=== PATIENT | male | born 1950 | race Caucasian/White ===

== ENCOUNTER 2023-01-04 08:33 | Inpatient (IN) | payer MEDICARE, OTHER, SELFPAY ==
[2023-01-04] VITALS (23 sets, daily range): BP systolic 89–157; BP diastolic 62–105; PULSE 69–128; RESP 14–26; TEMP 36.3–36.9; O2SAT 91–94; BMI 26.7
--- NOTE | 2023-01-04 | ECHO_ITS ---
Patient Info Name: Satnam Tovar Age: 72 years : 1950 Gender: Male Ht: 70 in Wt: 191 lbs BSA: 2.08 m2 HR: 112 bpm BP: 117 / 73 mmHg Heart Rhythm: Sinus Rhythm Technical Quality: Poor Exam Date: 01/04/2023 4:22 PM Exam Location: [facility] Pulmonary Patient Status: Inpatient Admit Date: 01/04/2023 Staff Ordering Physician: Mariana Orellana MD Potato Inspector: Lizz Rodríguez RDCS Attending Provider: Mariana Orellana MD Exam Type: CA echo dop color flow w con Study Info Indications - ELEVATED TROPONIN Complete two-dimensional, color flow and Doppler transthoracic echocardiogram is performed with contrast to opacify the left ventricle and to improve the deliniation of the left ventricle endocardial borders. Contrast/Agitated Saline Contrast/Ag. Saline: Definity Amount: 3.00 ml Administered By: Lizz Rodríguez RDCS Existing IV Access: Yes IV Access Condition: patent with no signs of infiltration Summary 1. Left ventricular chamber dimension is mildly enlarged. 2. Left ventricular systolic function is moderately reduced, estimated at 35-40%. 3. There is no increased left ventricular wall thickness. 4. Left ventricular septal wall motion is abnormal with septal motion related to bundle branch block. 5. The left ventricular diastolic function is indeterminate. 6. Left atrial chamber dimension is moderately enlarged. 7. The mitral valve has thickened leaflets. 8. There is mild mitral valve regurgitation. 9. There is mild tricuspid valve regurgitation. Left Ventricle Left ventricular chamber dimension is mildly enlarged. Left ventricular systolic function is moderately reduced, estimated at 35-40%. There is no increased left ventricular wall thickness. Left ventricular septal wall motion is abnormal with septal motion related to bundle branch block. The left ventricular diastolic function is indeterminate. Right Ventricle Right ventricular chamber dimension is normal. Right ventricular systolic function is normal. Left Atria Left atrial chamber dimension is moderately enlarged. Right Atria Right atrial chamber dimension is normal. Aortic Valve The aortic valve is not well visualized. There is no aortic valve stenosis. There is trace aortic valve regurgitation. Pulmonic Valve The pulmonic valve is not well visualized. Mitral Valve The mitral valve has thickened leaflets. There is no mitral valve stenosis. There is mild mitral valve regurgitation. Tricuspid Valve The tricuspid valve leaflets are normal. There is no significant tricuspid valve stenosis. There is mild tricuspid valve regurgitation. Pericardium/Pleural The pericardium appears normal. There is trivial pericardial effusion. Inferior Vena Cava Normal inferior vena cava with >50% collapse upon inspiration consistent with normal right atrial pressure, 5 mmHg. Aorta The aortic root size at the sinus of Valsalva is not well visualized. Left Ventricular Outflow Tract Name Value Normal LVOT Doppler LVOT Peak Gradient 2 mmHg LVOT Mean Gradient 1 mmHg LVOT VTI 7.76 cm LVOT VTI/AV VTI Ratio 0.37 Mitral Valve
--- NOTE | ~2023-01-04 | XR_ITS ---
EXAMINATION: XR abdomen/kub 1V INDICATION: Small bowel obstruction TECHNIQUE: Supine view of the abdomen is obtained COMPARISON: 01/08/2023 FINDINGS: There are persistently dilated loops of small bowel as well as a number of dilated loops ap pears has decreased. No free intraperitoneal gas is identified. 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 Phleboliths are noted in the pelvis. Right lower rib fractures are again noted. IMPRESSION: 1. Persistent but slight improvement in dilated small bowel, consistent with adynamic ileus versus pa rtial obstruction. Reviewed, dictated and finalized at location A. IMPRESSION: 1. Persistent but slight improvement in dilated small bowel, consistent with ad ynamic ileus versus partial obstruction.
--- NOTE | ~2023-01-04 | XR_ITS ---
EXAMINATION: XR sm bowel follow through DATE: 01/06/2023 13:38 INDICATION: Small bowel obstruction. TECHNIQUE: Oral contrast was administered, and a time course of radiographs of the abdomen was obtain ed. Fluoroscopy of the small bowel was not performed. Fluoroscopy exposure time was 0 minutes. The to lydia number of images was 8. COMPARISON: CT abdomen and pelvis 01/04/2023 FINDINGS: The nasogastric tube tip is in the stomach. There are multiple dilated loops of jejunum. The ileum is normal in caliber. Transit time from the stomach to proximal colon was approximately 3 hours. IMPRESSION: 1. Dilated jejunum without visible transition point, consistent with adynamic ileus versus partial sm all bowel obstruction. Reviewed, dictated and finalized at location A. IMPRESSION: 1. Dilated jejunum without visible transition point, consistent with adynamic i leus versus partial small bowel obstruction.
--- NOTE | ~2023-01-04 | US_ITS ---
EXAMINATION: US venous doppler [facility] DATE: 01/04/2023 18:48 INDICATION: Shortness of breath following long distance car ride TECHNIQUE: Grayscale ultrasound images without and with compression and Doppler ultrasound images of the bilateral lower extremity veins were obtained. COMPARISON: None. FINDINGS: The visualized portions of right common femoral vein, profunda (deep) femoral vein, femoral vein, pop liteal vein, posterior tibial veins, peroneal veins, gastrocnemius vein and greater saphenous vein ou tflow are patent. The visualized portions of left common femoral vein, profunda femoral vein, femoral vein, popliteal v ein, posterior tibial veins, peroneal veins, gastrocnemius vein and greater saphenous vein outflow ar e patent. IMPRESSION: 1. No deep venous thrombosis in either lower limb. Reviewed, dictated and finalized at location A.
--- NOTE | ~2023-01-04 | XR_ITS ---
EXAMINATION: XR abdomen NG/feed tube insert DATE: 01/04/2023 16:37 INDICATION: Nasogastric tube placement. TECHNIQUE: A supine view of the abdomen was obtained. COMPARISON: CT abdomen and pelvis 01/04/2023 FINDINGS: The nasogastric tube tip is in the stomach. The stomach is distended. There is mild elevati on of left hemidiaphragm. There are dilated loops of small bowel. The lower abdomen is not included. IMPRESSION: 1. Nasogastric tube tip in the stomach. 2. Dilated small bowel, consistent with small bowel obstruction. Reviewed, dictated and finalized at location A.
--- NOTE | ~2023-01-04 | CT_ITS ---
Non-contrast CT scan of the Abdomen and Pelvis Clinical indication: Vomiting, flank pain Technique: 2.5 mm axial scans were obtained through the abdomen and pelvis without intravenous or or al contrast. Dose reduction technique was used on this scan by utilizing automated exposure control a nd iterative reconstruction technique. The dose-length product (DLP) was 707.42 mGy-cm. Findings: Images through the lung bases reveal patchy groundglass opacification the visualized lung bases, with probable right middle lobe atelectatic change. There is no evidence of renal or ureteral calculi. The kidneys and the ureters are nondilated. The liver, spleen, pancreas, gallbladder, and adrenals appear normal. There are atherosclerotic calci fications of the aorta. Multiple dilated proximal small bowel is. Distal small bowel and large bowel are decompressed. Transi tion point not well delineated, probably in the mid abdomen. Images through the pelvis were performed. There is no evidence of ascites or lymphadenopathy. Urinary bladder unremarkable. Prostate gland is unremarkable. Fat-containing right inguinal hernia noted. Impression: Small bowel obstruction, as detailed above. Patchy groundglass opacities in the lung bases, suspicious for pneumonia or other inflammatory proces s. Correlate clinically. Fat-containing right inguinal hernia. Reviewed, dictated and finalized at location M. Impression: Small bowel obstruction, as detailed above. Patchy groundglass opacities in the lung bases, suspicious for pneumonia or oth er inflammatory process. Correlate clinically. Fat-containing right inguinal hernia.
--- NOTE | ~2023-01-04 | XR_ITS ---
EXAMINATION: XR ribs RT 2V DATE: 01/05/2023 13:43 INDICATION: Right rib fractures. TECHNIQUE: 2 views of the right ribs on 4 radiographs were obtained. COMPARISON: CT abdomen and pelvis 01/04/2023 FINDINGS: There is no right-sided pneumonia, pleural effusion, or pneumothorax. There are dilated loo ps of small bowel. The nasogastric tube tip is in the stomach. There is elevation of left hemidiaphra gm. There are fractures of right eighth-12th ribs. IMPRESSION: 1. Acute fractures of right eighth-12th ribs. 2. Dilated small bowel, consistent with adynamic ileus versus small bowel obstruction. Reviewed, dictated and finalized at location A. IMPRESSION: 1. Acute fractures of right eighth-12th ribs. 2. Dilated small bowel, consistent with adynamic ileus versus small bowel obstr uction.
--- NOTE | ~2023-01-04 | XR_ITS ---
XR abdomen obstructive series 01/05/2023 13:44 Indication: Small bowel obstruction Procedure: Supine and upright views of the abdomen Comparison: 01/04/2023 Findings: There are multiple dilated small bowel loops in the upper abdomen. The colon is relatively decompressed. NG tube partially visualized, likely in the stomach. No free air identified. Impression: 1: Dilated small bowel, likely small bowel obstruction. Reviewed, dictated and finalized at location B. Impression: 1: Dilated small bowel, likely small bowel obstruction.
--- NOTE | ~2023-01-04 | XR_ITS ---
EXAMINATION: XR abdomen NG/feed tube insert DATE: 01/04/2023 12:45 INDICATION: Nasogastric tube placement TECHNIQUE: An upright view of the abdomen was obtained on 2 radiographs. COMPARISON: CT abdomen and pelvis 01/04/2023 FINDINGS: The lower abdomen is excluded. There are dilated loops of small bowel. There is distention of the stomach. There is elevation of left hemidiaphragm. The nasogastric tube is coiled in the phary nx. IMPRESSION: 1. Nasogastric tube coiled in the pharynx. 2. Dilated small bowel, consistent with small bowel obstruction. Reviewed, dictated and finalized at location A.
--- NOTE | ~2023-01-04 | XR_ITS ---
EXAMINATION: XR abdomen obstructive series DATE: 01/08/2023 09:04 INDICATION: Partial small bowel obstruction TECHNIQUE: Decubitus and supine views of the abdomen were obtained. COMPARISON: 01/06/2023 FINDINGS: There are persistently dilated loops of small bowel. No free intraperitoneal gas is identif ied. Contrast from recent small bowel follow-through has entered the colon. There are displaced anter olateral fractures of the right ninth and 10th ribs. IMPRESSION: 1. Persistent dilated small bowel, consistent with adynamic ileus versus partial obstruction. 2. Displaced anterolateral fractures of the right ninth and 10th ribs. Reviewed, dictated and finalized at location A. IMPRESSION: 1. Persistent dilated small bowel, consistent with adynamic ileus versus partia l obstruction. 2. Displaced anterolateral fractures of the right ninth and 10th ribs.
--- NOTE | ~2023-01-04 | XR_ITS ---
EXAMINATION: XR chest 1V portable INDICATION: Shortness of breath TECHNIQUE: Portable AP chest at 0816 hours COMPARISON: 01/05/2023 FINDINGS: There is elevation of the left hemidiaphragm. There are minimal airspace opacities of the r ight lung base. A small right pleural effusion is suggested. There is no pneumothorax. Previously ila cribed right-sided rib fractures are not well demonstrated. IMPRESSION: 1. Small right pleural effusion and right basilar airspace opacity, likely atelectasis. Reviewed, dictated and finalized at location A. IMPRESSION: 1. Small right pleural effusion and right basilar airspace opacity, likely atel ectasis.
--- NOTE | ~2023-01-04 | XR_ITS ---
EXAMINATION: XR chest 1V portable DATE: 01/04/2023 09:22 INDICATION: Cough. Weakness. TECHNIQUE: A single frontal view of the chest was obtained. COMPARISON: None. FINDINGS: There is marked elevation of left hemidiaphragm. There is mild atelectasis at the lung base s. No pleural effusion or pneumothorax. The heart size is normal. There is gaseous distention of the stomach. IMPRESSION: 1. Marked elevation of left hemidiaphragm. 2. Mild atelectasis at the lung bases. Reviewed, dictated and finalized at location A.
--- NOTE | 2023-01-04 08:38 | ECG_ITS ---
Measurements Intervals [place] Rate: 123 P: 136 WV: 79 QRS: -24 QRSD: 166 T: 132 QT: 373 QTc: 536 Interpretive Statements ATRIAL FLUTTER/TACHYCARDIA WITH RAPID VENTRICULAR RSEPONSE FREQUENT VENTRICULAR COUPLETS LEFT BUNDLE BRANCH BLOCK BASELINE ARTIFACT- II ABNORMAL ECG NO PREVIOUS ECG AVAILABLE FOR COMPARISON Electronically Signed On 01-04-2023 10:30:07 CDT by Jamel Ragsdale D.O.
--- NOTE | 2023-01-04 08:59 | PC.NURSE ---
Pt To ED with c/o vomiting since last night and hiccups. Pt had a fall and fell on right side and reports he broke 7 ribs. Pt also has not had a BM in 4-5 days
[2023-01-04] MEDS: SODIUM CHLORIDE 0.9% IV 1,000 ML 999 ML IV CONT (09:06)
[2023-01-04] MEDS: ONDANSETRON INJ 4 MG/2 ML VIAL IV PUSH ×2 (09:10→14:43)
--- NOTE | 2023-01-04 09:18 | ED.GENADULT ---
HPI - General Adult General Chief complaint: Unspecified Stated complaint: weakness, n/v, dark urine Time Seen by Provider: 01/04/23 08:50 History of Present Illness HPI narrative: Pt presents today with numerous episodes of emesis since last night and hiccups. Pt fell 5 days ago and fractured 7 ribs on right side. Pt has been taking meds for pain and has been seen at [facility]. Pt has a history of LBBB and has not been here before. Pt denies CP. Related Data Home Medications Medication Instructions Recorded Confirmed alendronate 35 mg tablet 35 mg PO WEEKLY 01/04/23 01/04/23 amlodipine 5 mg tablet (Norvasc) 5 mg PO DAILY 01/04/23 01/04/23 aspirin 81 mg chewable tablet 81 mg PO DAILY 01/04/23 01/04/23 atorvastatin 40 mg tablet 40 mg PO DAILY 01/04/23 01/04/23 cetirizine 10 mg tablet (Zyrtec) 10 mg PO DAILY 01/04/23 01/04/23 fluticasone 250 mcg-salmeterol 50 1 inh inhalation DAILY 01/04/23 01/04/23 mcg/dose blistr powdr for inhalation (Advair Diskus) fosinopril 40 mg tablet 40 mg PO DAILY 01/04/23 01/04/23 hydrochlorothiazide 25 mg tablet 25 mg PO DAILY 01/04/23 01/04/23 potassium chloride 10 mEq 10 meq PO DAILY 01/04/23 01/04/23 tablet,extended release(part/cryst) Allergies Allergy/AdvReac Type Severity Reaction Status Date / Time Iodinated Contrast Media Allergy Anaphylactic Verified 01/04/23 08:59 Shock Review of Systems Review of Systems: All systems reviewed & are unremarkable except as noted in HPI and below PMFSH Past Medical History Medical History Dyslipidemia Hypertension Surgical History Surgical History History of appendectomy History of inguinal hernia repair Social History Social History Smoking status: Never smoker Alcohol intake: current Substance use: never Lack of Transportation: No Lack of Food: Never True Current Housing: I Have Housing Concerned About Future Housing: No Difficulty Paying Gas/Electric Bills: No Difficulty Paying for Meds: No Currently Unemployed: No Education: Bachelor's Degree Difficulty w/ Childcare or Family Care: No Spiritual care concerns: No Exam Const: General: cooperative, healthy appearing, comfortable and no acute distress Nutritional Appearance: average body habitus Orientation/consciousness: patient oriented x3 Limitations: no limitations HENMT: Head: normal to inspection Throat: posterior oropharynx normal Eyes: Conjunctivae: conjunctivae normal Neck: Neck: normal visual inspection Chest: Chest palpation & inspection: abnormal inspection of the chest and other (tender right side of chest and bruising no crepitance) Resp: Effort & Inspection: normal respiratory effort Auscultation: clear to auscultation bilaterally Cardio: Rate: tachycardic GI: Inspection: other (extensive echymosis right lateral abdomen and flank) GI Palp: Yes abdominal tenderness (mild generalized) Auscultation: normal bowel sounds Back/Spine/Pelvis: Back: ecchymosis Neuro: General: patient oriented x3 Motor exam (neuro): 5/5 motor strength present throughout Sensory Exam: normal sensation Extrem: General: normal to inspection and full ROM Psych: Appearance: grossly normal Mental Status: mental status grossly normal Speech and movement: Normal speech and movement present Affect: normal affect Attitude: cooperative Thought process: Normal thought process present Thought content: Yes Normal thought content present Course Vital Signs Vital signs: Vital Signs Temperature 97.3 F L 01/04/23 08:38 Pulse Rate 121 H 01/04/23 08:38 Respiratory Rate 18 01/04/23 08:38 Blood Pressure 157/105 H 01/04/23 08:38 Pulse Oximetry 93 01/04/23 08:38 Oxygen Delivery Room Air 01/04/23 08:38 Temperature 98.5 F 01/04/23 16:00 Pulse Rate 116 H 01/04/23
[2023-01-04 09:21] LABS: Basophils Absolute Auto 0.1 K/mm3 (0.0-0.1); Basophils Percent Auto 0.4 % (0.2-1.2); Eosinophils Absolute Auto 0.3 K/mm3 (0-0.3); Eosinophils Percent Auto 1.6 % (0-4.4); Hematocrit 46.3 % (42.0-52.0); Hemoglobin 16.1 g/dL (14.0-18.0); Immature Granulocyte Absolute 0.07 K/mm3 (0.00-0.031); Immature Granulocyte Percent A 0.4 % (0-0.5); Lymphocytes Absolute Auto 0.37 K/mm3 (0.9-3.2); Lymphocytes Percent Auto 2.2 % (18.3-44.2); Mean Corpuscular HGB Conc 34.8 g/dl (32-36); Mean Corpuscular Hemoglobin 33.3 pg (26-34); Mean Corpuscular Volume 95.7 fl (80-100); Mean Platelet Volume 10.5 fl (7.4-10.4); Monocytes Absolute Auto 1.1 K/mm3 (0.1-0.6); Monocytes Percent Auto 6.5 % (2.6-8.5); Neutrophils Percent Auto 88.9 % (45.5-73.1); Platelet Count Result 289 k/mm3 (150-375); Red Blood Count 4.84 M/mm3 (4.6-6.20); Red Cell Distribution Width 13.2 % (11.5-14.5); White Blood Count 16.9 K/mm3 (4.5-10.0)
[2023-01-04 09:29] LABS: Alanine Aminotransferase 71 U/L (6-50); Albumin Level 4.6 g/dL (3.5-5.1); Alkaline Phosphatase 53 U/L (38-126); Anion Gap 12 mmol/L (8-16); Aspartate Amino Transferase 47 U/L (17-59); Bilirubin,Total 2.4 mg/dL (0.2-1.3); Blood Urea Nitrogen 59 mg/dL (9-20); Calcium 11.5 mg/dL (8.4-10.2); Carbon Dioxide 32 mmol/L (22-30); Chloride 93 mmol/L (98-107); Estimated CRCL calculation 43 ml/min; Estimated Glomerular Filt Rate 50; Glucose 190 mg/dL (65-110); Potassium 3.6 mmol/L (3.4-5.0); Sodium 137 mmol/L (137-145)
[2023-01-04 09:32] LABS: Prothrombin Time 13.5 Seconds (11.1-14.7)
[2023-01-04 09:33] LABS: Partial Thromboplastin Time 22.7 SECONDS (22.3-36.8)
[2023-01-04 09:42] LABS: Troponin I 0.092 ng/mL (0.000-0.034)
[2023-01-04 10:46] LABS: Influenza A QL RT-PCR Negative (Negative); Influenza B QL RT-PCR Negative (Negative); RSV RNA, RT-PCR Negative (Negative); SARS-CoV-2 RNA PCR Negative (Negative)
[2023-01-04] MEDS: LORazepam INJ (*CRX) 2 MG/ML VIAL 0.5 MG IV PUSH (11:37)
[2023-01-04] MEDS: MORPHINE SULFATE (*CRX) 2 MG/ML INJ 1 MG IV PUSH (13:12)
[2023-01-04] MEDS: metroNIDAZOLE 500 MG/ISO 100ML 500 MG/100 ML BAG 100 MG IVPB ×2 (13:13→22:38)
--- NOTE | 2023-01-04 13:51 | PC.NURSE ---
3 ATTEMPTS BY [address] NGT. ALL ATTEMPTS UNSUCCESSFUL. PT RESTING AT THIS TIME, REQUESTING BREAK, ERP AWARE.
[2023-01-04] MEDS: CIPROFLOXACIN 400 MG/D5W 200ML 200 ML 200 MG IVPB ×2 (13:52→21:05)
--- NOTE | 2023-01-04 15:04 | PM.IMHP ---
H&P: HPI History of Present Illness Date/Time: 01/04/23 15:04 Chief Complaint: nausea/vomiting hiccups Narrative: 72 years old M with PMH of asthma, HTN presented with nausea, vomiting. He recently drove to [place] to see his son, came back had a fall 1 week ago, had right sided multiple rib fractures. Has been not able to take deep breath due to pain, started having chest congestion/tightness, and whezing. 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 Has not been able to keep anything down due to persistent nausea, vomiting. Not passing gas, last BM was 6-7 days ago. Had elevated troponin on admission which continues to trend up. CT abdomen shows SBO. Review of Systems Constitutional: Constitutional: Reports fatigue, Reports lethargy and Reports weakness Eyes: Eyes: Reports as per HPI ENT: Reports system reviewed and no additional complaints, except as documented Cardiovascular: Cardiovascular: Reports chest pain Respiratory: Respiratory: Reports chest congestion, Reports cough, Reports dyspnea and Reports wheezing Gastrointestinal: Gastrointestinal: Reports abdominal pain, Reports constipation, Reports nausea and Reports vomiting Musculoskeletal: Musculoskeletal: Reports no additional musculoskeletal complaints Neurologic: Reports system reviewed and no additional complaints, except as documented [facility] Social History Social History Smoking status: Never smoker Alcohol intake: current Substance use: never Lack of Transportation: No Lack of Food: Never True Current Housing: I Have Housing Concerned About Future Housing: No Difficulty Paying Gas/Electric Bills: No Difficulty Paying for Meds: No Currently Unemployed: No Education: Bachelor's Degree Difficulty w/ Childcare or Family Care: No Spiritual care concerns: No Meds Home Medications and Allergies Allergies Allergy/AdvReac Type Severity Reaction Status Date / Time Iodinated Contrast Media Allergy Anaphylactic Verified 01/04/23 08:59 Shock Vital Signs Vital Signs - 24 hr 01/04/23 08:38 01/04/23 08:41 01/04/23 08:45 Temperature 97.3 F L Pulse Rate 121 H Respiratory Rate 18 Blood Pressure 157/105 H Pulse Oximetry 93 94 94 Oxygen Delivery Room Air 01/04/23 08:46 01/04/23 09:23 01/04/23 09:36 Temperature Pulse Rate 117 H 128 H Respiratory Rate 20 16 Blood Pressure 122/84 Pulse Oximetry 93 94 92 Oxygen Delivery 01/04/23 09:48 01/04/23 10:00 01/04/23 10:24 Temperature Pulse Rate 110 H 109 H 111 H Respiratory Rate 26 H 18 20 Blood Pressure Pulse Oximetry 91 91 91 Oxygen Delivery 01/04/23 10:44 01/04/23 11:01 01/04/23 11:02 Temperature Pulse Rate 97 112 H Respiratory Rate 20 19 Blood Pressure 117/73 Pulse Oximetry 93 91 94 Oxygen Delivery 01/04/23 14:15 Temperature 97.3 F L Pulse Rate 69 Respiratory Rate 20 Blood Pressure 105/62 Pulse Oximetry 92 Oxygen Delivery Exam Const: General: in distress and uncomfortable HENMT: Face/Nose/Sinus: Normal nares present Mouth: Yes dry mucous membranes Eyes: Sclera: sclerae normal Neck: Neck: supple Resp: Effort & Inspection: normal respiratory effort Auscultation: diminished lung sounds Other: no wheezing heard Cardio: Rate: regular rate Rhythm: regular rhythm GI: Inspection: distended GI Palp: Yes Firmness to palpation present (GI) and Yes Tenderness to palpation present (GI) Other: absent bowel sounds Skin: General skin exam: normal color Neuro: Speech: normal speech Extrem: General: normal to inspection Psych: Mental Status: mental status grossly normal H&P: Results Labs Labs: Short CBC 01/04/23 Range/Units 09:06 WBC 16.9 H (4.5-10.0) K/mm3 Hgb 16.1 (14.0-18.0) g/dL Hct 46.3 (42.0-52.0) % Plt Count 289 (150-375) k/mm3 [facility] 01/04/23 09:06 Sodium 137 Pot
--- NOTE | 2023-01-04 15:08 | PC.NURSE ---
This patient, Satnam Tovar, was admitted to IMU Room 211-01. Patient/family oriented to hospital policies and general routines including ID bracelet, bed and alarms, visiting hours, pain management, procedures, bathroom and other care routines, personal items, smoking policy, room service/diet, and visiting hours. Information on how to activate the Rapid Response Team has been discussed. Patient/Family are encouraged to report perceived risks to care and to ask questions if they do not understand what they are told or what they should do.
--- NOTE | 2023-01-04 15:16 | ECG_ITS ---
Measurements Intervals [place] Rate: 113 P: RI: 0 QRS: 107 QRSD: 181 T: -67 QT: 409 QTc: 563 Interpretive Statements ATRIAL FLUTTER/TACHYCARDIA WITH RAPID VENTRICULAR RESPONS VENTRICULAR COUPLETS AND FREQUENT VENTRICULAR PREMATURE COMPLEXES LEFT BUNDLE BRANCH BLOCK BASELINE ARTIFACT- I, II, AVR, V1-V3 ABNORMAL ECG COMPARED TO ECG 01/04/2023 08:47:17 NO SIGNIFICANT CHANGES Electronically Signed On 01-04-2023 18:34:24 CDT by Jamel Ragsdale D.O.
[2023-01-04 15:18] LABS: Troponin I 0.139 ng/mL (0.000-0.034)
--- NOTE | 2023-01-04 15:53 | PM.CNGS ---
Assessment and Plan Assessment and plan (1) Small bowel obstruction: Code(s): K56.609 - Unspecified intestinal obstruction, unspecified as to partial versus complete obstruction Status: Acute Assessment and Plan: CT suggests a small bowel obstruction with possible transition point in the mid abdomen. His stomach appears fairly distended on imaging and they have been unsuccessful with NG placement in the ER. Nursing staff will attempt placement up on the floor as he continues to have nausea with vomiting in the ER and abdominal distention. If unsuccessful, then may need to consider fluoroscopy-guided NG placement. Would recommend to continue with conservative treatment for now with NG tube decompression, bowel rest, IV fluids, and analgesics as needed. Etiology not clear. Only previous abdominal surgery is an open appendectomy and laparoscopic inguinal hernia repair. His constipation and recent narcotic use could also be contributing to this issue. (2) Pneumonia: Code(s): J18.9 - Pneumonia, unspecified organism Status: Acute Assessment and Plan: CT suggests possible pneumonia. Patient with dyspnea, chest congestion, weak cough, and recent rib fractures. Currently on IV antibiotics, management per Hospitalist. (3) Elevated troponin: Code(s): R77.8 - Other specified abnormalities of plasma proteins Status: Acute Assessment and Plan: Elevated troponin 0.092. Denies any chest pain or pressure. Has shortness of breath with chest congestion. Echo ordered and Cardiology consulted. Venous dopplers also ordered. (4) ÓSCAR (acute kidney injury): Code(s): N17.9 - Acute kidney failure, unspecified Status: Acute (5) Status post fall: Code(s): Z91.81 - History of falling Status: Acute Assessment and Plan: Large area of bruising on the right lateral abdomen and flank, appears stable. Reported rib fractures on outpatient x-rays. Rib x-rays have been ordered. (6) Atrial arrhythmia: Code(s): I49.8 - Other specified cardiac arrhythmias Status: Acute Assessment and Plan: EKG x 2, showing atrial flutter and atrial fibrillation with RVR. Cardiology consulted and on telemetry in IMU. Plan I have discussed the patient's case and plan of care with Dr. Hoff. History of Present Illness Consult details Consult date: 01/04/23 Reason for consult: other (Small-bowel obstruction) Requesting physician: Eva Saini III, DO Narrative: This is a 72-year-old man with a history of hypertension, who presented to the emergency department with complaints of vomiting and hiccups. Patient reportedly had a ground level fall on his right side about 5 days ago and was seen in an urgent care. He had x-rays that reportedly showed multiple rib fractures on the right side. He reports having increasing shortness of breath and chest congestion over the past few days, but has been unable to have a good cough due to the rib fractures. 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 He reportedly took a dose of the steroids last night and developed nausea. He then had innumerous episodes of vomiting overnight. He reports his emesis was bilious appearing. He reports associated bloating and abdominal discomfort due to the bloating. He decided to come into the ER today for further evaluation. [place] [address], BUN 59, creatinine 1.4, glucose 190, and troponin 0.092. Total bilirubin noted to be 2.4. Chest x-ray showed marked elevation of left hemidiaphragm, mild atelectasis at the lung bases. CT scan of the abdomen and pelvis showed a small bowel obstruction with transition point not well delineated but probably in the mid abdomen, patchy ground-glass opacities in the lung bases suspicious for pneumonia, and fat containing right inguinal hernia. Attempt was made at NG tube placement in the ER. Subsequent KUB jessi
[2023-01-04] MEDS: SODIUM CHLORIDE 0.9% IV 1,000 ML 75 ML IV CONT (16:09)
[2023-01-04] MEDS: PERFLUTREN LIPID MICROSPHERES 1.5 ML VIAL DILUTED TO 10 ML TOTAL VOLUME IV PUSH (16:40)
--- NOTE | 2023-01-04 17:15 | IVDEFINITY ---
Prior to administration of IV Definity the patient was educated on the risks and benefits of the imaging enhancing agent including potential adverse side effects. The patient verbalized understanding. Allergies were verified. No exclusion criteria were identified and at least one of the following inclusion criteria were met: 1) physician request, 2) patient technically difficult to image (per the [employer]chocardi[employer] guidelines of two or more segments not discernable within the apical view), or 3) questionable left ventricular function. ?
--- NOTE | 2023-01-04 17:43 | PM.CNCAR ---
Assessment and Plan Assessment and plan (1) Elevated troponin: Code(s): R77.8 - Other specified abnormalities of plasma proteins Status: Acute Assessment and Plan: No chest pain. Has LBBB, which is chronic per the patient. Continue to trend troponins until peak. Echo ordered, will follow up on results. (2) Small bowel obstruction: Code(s): K56.609 - Unspecified intestinal obstruction, unspecified as to partial versus complete obstruction Status: Acute Assessment and Plan: General Surgery has been consulted. NG tube in place. (3) Atrial arrhythmia: Code(s): I49.8 - Other specified cardiac arrhythmias Status: Acute Assessment and Plan: Initial EKG read as possible atrial flutter or atrial tachycardia. Telemetry shows tachycardia initially, however, once NG tube was placed and patient started feeling better, his tachycardia improved. On telemetry, there is sinus rhythm with frequent ectopic beats with PACS/PVCs, appears to be some NSVT as well. Cannot take oral meds at this time, so will give dose of IV Metoprolol. Continue to monitor on tele. Will obtain repeat EKG in the morning. Keep electrolytes optimized. Will follow up on echo results. History of Present Illness History of Present Illness Consult date/time: 01/04/23 17:43 Requesting physician: Eva Saini III, DO Consult reason: Other (Elevated troponin) Reason For Visit: SBO Narrative: We are consulted for elevated troponin. This is a 72-year-old male with hypertension who presented to the ER with vomiting. Patient recently had a ground level fall couple days ago and had broken multiple ribs. Was having increased congestion and shortness of breath the past several days, which worsened after rib fracture. 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 However, patient has been having nausea with several episodes of vomiting. Also with abdominal distension, abdominal pain. Last bowel movement was 5 days ago. Patient found with small bowel obstruction on ER workup. Also noted to have troponin of 0.092 --> 0.139. No chest pain. Initial EKG shows probable sinus rhythm vs atrial tachycardia with LBBB. Patient states he was told he had a LBBB several months ago when undergoing MRI scan for his prostate. Does not see a oracle database consultant. No prior cardiac history. Review of Systems Review of Systems: All systems reviewed & are unremarkable except as noted in HPI and below (HPI) PMFSH Past Medical History Medical History Dyslipidemia Hypertension Surgical History Surgical History History of appendectomy History of inguinal hernia repair Social History Social History Smoking status: Never smoker Alcohol intake: current Substance use: never Lack of Transportation: No Lack of Food: Never True Current Housing: I Have Housing Concerned About Future Housing: No Difficulty Paying Gas/Electric Bills: No Difficulty Paying for Meds: No Currently Unemployed: No Education: Bachelor's Degree Difficulty w/ Childcare or Family Care: No Spiritual care concerns: No Meds Home Medications and Allergies Home Medications Medication Instructions Recorded Confirmed Type alendronate 35 mg tablet 35 mg PO WEEKLY 01/04/23 01/04/23 History amlodipine 5 mg tablet (Norvasc) 5 mg PO DAILY 01/04/23 01/04/23 History aspirin 81 mg chewable tablet 81 mg PO DAILY 01/04/23 01/04/23 History atorvastatin 40 mg tablet 40 mg PO DAILY 01/04/23 01/04/23 History cetirizine 10 mg tablet (Zyrtec) 10 mg PO DAILY 01/04/23 01/04/23 History fluticasone 250 mcg-salmeterol 50 1 inh inhalation DAILY 01/04/23 01/04/23 History mcg/dose blistr powdr for inhalation (Advair Diskus) fosinopril 40 mg tablet 40 mg PO DAILY 01/04/23 01/04/23 History hydrochlorothiazide 25 mg
[2023-01-04 18:10] LABS: INR 1.1; Prothrombin Time 15.1 Seconds (11.1-14.7)
[2023-01-04] MEDS: METOPROLOL TARTRATE INJ 5 MG/5 ML VIAL IV PUSH (18:21)
[2023-01-04] MEDS: HEPARIN SOD/D5W 100 UNITS/ML 25,000 UNITS/250 ML BAG 10 UNITS IV CONT (18:23)
[2023-01-04 18:29] LABS: Troponin I 0.139 ng/mL (0.000-0.034)
[2023-01-04] MEDS: ALBUTEROL SULFATE NEB 2.5 MG/3 ML INH INHALATION (20:48)
[2023-01-04 22:03] LABS: Troponin I 0.139 ng/mL (0.000-0.034)
[2023-01-05] VITALS (24 sets, daily range): BP systolic 93–123; BP diastolic 42–66; PULSE 69–106; RESP 14–18; TEMP 36.6–37.3; O2SAT 91–96
[2023-01-05 00:43] LABS: Partial Thromboplastin Time 67.7 SECONDS (22.3-36.8)
[2023-01-05] MEDS: HEPARIN SODIUM 5,000 UNITS/ML VIAL 3500 UNITS IV PUSH ×2 (01:10→14:24)
[2023-01-05] MEDS: ALBUTEROL SULFATE NEB 2.5 MG/3 ML INH INHALATION ×3 (02:52→21:24)
[2023-01-05 04:57] LABS: Basophils Percent Auto 0.1 % (0.2-1.2); Hematocrit 39.2 % (42.0-52.0); Hemoglobin 13.2 g/dL (14.0-18.0); Immature Granulocyte Absolute 0.03 K/mm3 (0.00-0.031); Immature Granulocyte Percent A 0.3 % (0-0.5); Lymphocytes Absolute Auto 0.62 K/mm3 (0.9-3.2); Lymphocytes Percent Auto 5.5 % (18.3-44.2); Mean Corpuscular HGB Conc 33.7 g/dl (32-36); Mean Corpuscular Hemoglobin 32.8 pg (26-34); Mean Corpuscular Volume 97.5 fl (80-100); Mean Platelet Volume 10.3 fl (7.4-10.4); Monocytes Percent Auto 9.1 % (2.6-8.5); Neutrophils Absolute Auto 9.7 K/mm3 (1.3-6.7); Platelet Count Result 203 k/mm3 (150-375); Red Blood Count 4.02 M/mm3 (4.6-6.20); Red Cell Distribution Width 13.2 % (11.5-14.5); White Blood Count 11.4 K/mm3 (4.5-10.0)
[2023-01-05 05:06] LABS: Anion Gap 6 mmol/L (8-16); Blood Urea Nitrogen 75 mg/dL (9-20); Calcium 9.5 mg/dL (8.4-10.2); Carbon Dioxide 39 mmol/L (22-30); Chloride 95 mmol/L (98-107); Estimated CRCL calculation 40 ml/min; Estimated Glomerular Filt Rate 46; Glucose 117 mg/dL (65-110); Magnesium 2.2 mg/dL (1.6-2.3); Potassium 3.3 mmol/L (3.4-5.0); Sodium 140 mmol/L (137-145)
[2023-01-05] MEDS: metroNIDAZOLE 500 MG/ISO 100ML 500 MG/100 ML BAG 100 MG IVPB ×3 (05:46→22:52)
[2023-01-05] MEDS: SODIUM CHLORIDE 0.9% IV 1,000 ML 75 ML IV CONT ×2 (05:46→20:04)
--- NOTE | 2023-01-05 07:00 | ECG_ITS ---
Measurements Intervals [address] Rate: 93 P: 42 IN: 152 QRS: -28 QRSD: 205 T: 148 QT: 452 QTc: 565 Interpretive Statements SINUS RHYTHM FREQUENT VENTRICULAR PREMATURE COMPLEXES LEFT BUNDLE BRANCH BLOCK ABNORMAL ECG COMPARED TO ECG 01/04/2023 15:35:31 SINUS RHYTHM NOW PRESENT Electronically Signed On 01-05-2023 7:50:50 CDT by Jamel Ragsdale D.O.
[2023-01-05 07:45] LABS: Partial Thromboplastin Time 71.6 SECONDS (22.3-36.8)
--- NOTE | 2023-01-05 09:01 | PM.IMPN ---
Progress Note: A&P Assessment and Plan (1) Small bowel obstruction: Code(s): K56.609 - Unspecified intestinal obstruction, unspecified as to partial versus complete obstruction Status: Acute Assessment and Plan: Consult general surgery, continue NG tube, NPO Cipro/Flagyl started 01/04 Zofran as needed, hold home medications (2) ÓSCAR (acute kidney injury): Code(s): N17.9 - Acute kidney failure, unspecified Status: Acute Assessment and Plan: Likely prerenal due to dehydration from severe nausea and vomiting Continue IV fluids, monitor creatinine 01/05: cr slightly worsened with IVF, cont to monitor on IVF, suspect needs more time to affect creat, check FeNa (3) Elevated troponin: Code(s): R77.8 - Other specified abnormalities of plasma proteins Status: Acute Assessment and Plan: Continue to trend, appreciate cardiology consult, follow-up echo Continue heparin drip Venous dopplers negative for DVT Chronic LBBB (4) Leucocytosis: Code(s): D72.829 - Elevated white blood cell count, unspecified Status: Acute Assessment and Plan: Unsure of etiology, could be reactive vs steroid use vs infectious etiology, down to 11 01/05 from 16 at admission 01/04 Was on prednisone as outpatient for possible pneumonia after recent rib fractures and cough developed (5) Dehydration: Code(s): E86.0 - Dehydration Status: Acute (6) Right rib fracture: Code(s): S22.31XA - Fracture of one rib, right side, initial encounter for closed fracture Status: Acute Assessment and Plan: Monitor, Lidoderm patch, Tylenol as needed S/p mechanical fall Rib series xray pending (7) Atrial fibrillation with RVR: Code(s): I48.91 - Unspecified atrial fibrillation Status: Acute Assessment and Plan: Consult cardiology, monitor telemetry Maintain potassium > 4 and mag > 2 Plan DVT prophylaxis with heparin drip GI prophylaxis not indicated Code status full code Subjective Date/time seen: 01/05/23 09:01 Interval history: 72-year-old male with history of asthma, hypertension presenting with nausea and vomiting, found to have SBO on admission. No overnight events noted. No chest pain or shortness of breath. No nausea, vomiting or diarrhea. No fevers or chills. Review of Systems Review of Systems: 12 point review of systems was assessed and was negative except as noted in the HPI Exam Narrative: General: No acute distress, alert and oriented per baseline, ngt in place to suction, bile noted in canister, 2L overnight HEENT: Atraumatic, normocephalic, mucous membranes moist CV: Regular rate and rhythm, S1, S2 Lungs: Clear to auscultation bilaterally, no rales or crackles noted, no wheezes, good air entry Abdomen: Soft, nontender, nondistended, hypoactive BS Extremities: Normal to inspection Skin: No rashes noted, no lesions or wounds seen Psych: Euthymic, normal affect Objective Data Vital Signs Vital Signs: Vital Signs - 24 hr 01/04/23 09:23 01/04/23 09:36 01/04/23 09:48 Temperature Pulse Rate 117 H 128 H 110 H Respiratory Rate 20 16 26 H Blood Pressure Pulse Oximetry 94 92 91 Oxygen Delivery Oxygen Flow Rate 01/04/23 10:00 01/04/23 10:24 01/04/23 10:44 Temperature Pulse Rate 109 H 111 H Respiratory Rate 18 20 Blood Pressure Pulse Oximetry 91 91 93 Oxygen Delivery Oxygen Flow Rate 01/04/23 11:01 01/04/23 11:02 01/04/23 14:15 Temperature 97.3 F L Pulse Rate 97 112 H 69 Respiratory Rate 20 19 20 Blood Pressure 117/73 105/62 Pulse Oximetry 91 94 92 Oxygen Delivery Oxygen Flow Rate 01/04/23 16:00 01/04/23 17:38 01/04/23 16:00 Temperature 98.5 F Pulse Rate 116 H 105 H Respiratory Rate 16 Blood Pressure 115/71 Pulse Oximetry 92 93 Oxygen Delivery Room Air Oxygen Flow Rate 01/04/23 18:21 01/04
[2023-01-05] MEDS: CIPROFLOXACIN 400 MG/D5W 200ML 200 ML 200 MG IVPB ×2 (09:03→20:05)
--- NOTE | 2023-01-05 10:03 | PM.PNCARD ---
Progress Note: A&P Assessment and Plan (1) Elevated troponin: Code(s): R77.8 - Other specified abnormalities of plasma proteins Status: Acute Assessment and Plan: No chest pain. Has LBBB, which is chronic per the patient. Continue to trend troponins until [facility]. Echo pending (2) Small bowel obstruction: Code(s): K56.609 - Unspecified intestinal obstruction, unspecified as to partial versus complete obstruction Status: Acute Assessment and Plan: General Surgery has been consulted. NG tube in place. (3) Atrial arrhythmia: Code(s): I49.8 - Other specified cardiac arrhythmias Status: Acute Assessment and Plan: Initial EKG read as possible atrial flutter or atrial tachycardia. Telemetry shows tachycardia initially, however, once NG tube was placed and patient started feeling better, his tachycardia improved. On telemetry, there is sinus rhythm with frequent ectopic beats with PACS/PVCs, appears to be some NSVT as well. Cannot take oral meds at this time. Metoprolol 5 mg IV Q 8 hours will be scheduled. Replace electrolytes as needed. Subjective Date/time seen: 01/05/23 10:03 Interval history: 72-year-old male with history of asthma, hypertension presenting with nausea and vomiting, found to have SBO on admission. Date of service 01/05/2023: Feels a little bit better. No chest pain or shortness of breath. Review of Systems Review of Systems: All systems reviewed & are unremarkable except as noted in HPI and below Cardiovascular: Cardiovascular: Denies chest pain Respiratory: Respiratory: Denies dyspnea Exam Const: General: no acute distress HENMT: Mouth: Yes moist mucous membranes Other: NG tube in place Eyes: General: appearance normal, both eyes and all related structures Sclera: sclerae normal Neck: Neck: supple Resp: Effort & Inspection: normal respiratory effort Auscultation: clear to auscultation bilaterally Cardio: Rate: tachycardic Rhythm: abnormal rhythm with ectopic beats GI: Inspection: distended Skin: General skin exam: normal color Neuro: Speech: normal speech Extrem: General: normal to inspection Psych: Mental Status: mental status grossly normal Affect: normal affect Objective Data Vital Signs Vital Signs: Vital Signs - 24 hr 01/04/23 10:24 01/04/23 10:44 01/04/23 11:01 Temperature Pulse Rate 111 H 97 Respiratory Rate 20 20 Blood Pressure 117/73 Pulse Oximetry 91 93 91 Oxygen Delivery Oxygen Flow Rate 01/04/23 11:02 01/04/23 14:15 01/04/23 16:00 Temperature 36.3 C L 36.9 C Pulse Rate 112 H 69 116 H Respiratory Rate 19 20 16 Blood Pressure 105/62 115/71 Pulse Oximetry 94 92 92 Oxygen Delivery Oxygen Flow Rate 01/04/23 17:38 01/04/23 16:00 01/04/23 18:21 Temperature Pulse Rate 105 H 117 H Respiratory Rate Blood Pressure Pulse Oximetry 93 Oxygen Delivery Room Air Oxygen Flow Rate 01/04/23 18:00 01/04/23 20:55 01/04/23 20:00 Temperature 36.4 C L Pulse Rate 89 83 Respiratory Rate 16 Blood Pressure 89/67 L Pulse Oximetry 94 94 Oxygen Delivery Nasal Cannula Oxygen Flow Rate 2 01/04/23 20:00 01/04/23 20:00 01/04/23 22:00 Temperature Pulse Rate 86 86 88 Respiratory Rate 16 Blood Pressure Pulse Oximetry 94 Oxygen Delivery Nasal Cannula Oxygen Flow Rate 2 01/04/23 23:45 01/05/23 00:00 01/05/23 00:00 Temperature 36.4 C L Pulse Rate 91 84 84 Respiratory Rate 14 14 Blood Pressure 147/95 H Pulse Oximetry 93 93 Oxygen Delivery Nasal Cannula Oxygen Flow Rate 2 01/05/23 02:00 01/04/23 20:48 01/04/23 20:58 Temperature Pulse Rate 86 92 96 Respiratory Rate 18 18 Blood Pressure Pulse Oximetry Oxygen Delivery Oxygen Flow Rate 01/05/23 02:53 01/05/23 04:00 01/05/23 03:05 Temperature 36.9 C Pulse Rate 88 105 H 91 Respiratory Rate 18 14 18 Blood Pressure 113/66 Pulse Oximet
[2023-01-05 10:17] LABS: Anion Gap 3 mmol/L (8-16); Blood Urea Nitrogen 64 mg/dL (9-20); Calcium 9.1 mg/dL (8.4-10.2); Carbon Dioxide 39 mmol/L (22-30); Chloride 96 mmol/L (98-107); Estimated CRCL calculation 59 ml/min; Estimated Glomerular Filt Rate > 60; Glucose 120 mg/dL (65-110); Potassium 3.1 mmol/L (3.4-5.0); Sodium 138 mmol/L (137-145)
--- NOTE | 2023-01-05 10:22 | PM.PNGS ---
Progress Note: A&P Assessment and Plan (1) Small bowel obstruction: Code(s): K56.609 - Unspecified intestinal obstruction, unspecified as to partial versus complete obstruction Status: Acute Assessment and Plan: Patient feeling much better and abdominal exam much improved after NG tube was placed. He had over 3 liters out since yesterday afternoon. Waiting for abdominal x-rays this morning. Continue NG tube, NPO, IV fluids, and analgesics as needed. May consider a small bowel follow through in the next 1-2 days depending on how he progresses. (2) Pneumonia: Code(s): J18.9 - Pneumonia, unspecified organism Status: Acute Assessment and Plan: Possible pneumonia on CT (3) Elevated troponin: Code(s): R77.8 - Other specified abnormalities of plasma proteins Status: Acute Assessment and Plan: Troponins being followed to [facility], Cardiology following, currently on a Heparin drip. Not complaining of any chest pain or discomfort this morning. (4) ÓSCAR (acute kidney injury): Code(s): N17.9 - Acute kidney failure, unspecified Status: Acute Assessment and Plan: Improved with IV fluid hydration, continue IV fluids, monitor labs. (5) Status post fall: Code(s): Z91.81 - History of falling Status: Acute (6) Atrial arrhythmia: Code(s): I49.8 - Other specified cardiac arrhythmias Status: Acute Assessment and Plan: Cardiology following. Currently on IV metoprolol. Tachycardia improved after NG tube decompression, repeat EKG this morning showing sinus rhythm with ectopy. Plan I have discussed the patient's case and plan of care with Dr. Hoff. Subjective Subjective Date/Time Seen: 01/05/23 09:22 Patient reports: no new complaints, feels better, pain is less and no bowel movement Interval history: Patient feeling much better today. His bloating has improved and his abdominal discomfort resolved after having the NG placed. He had 3,200 out of his NG since being placed yesterday afternoon. He still reports only a little flatus but no BM. Now on a heparin drip for his elevated troponins. He still complains of some chest congestion and now a productive cough, but no shortness of breath or chest pain. Review of Systems Cardiovascular: Cardiovascular: Reports no additional cardiovascular complaints and Denies chest pain Respiratory: Respiratory: Reports no additional respiratory complaints, Reports chest congestion and Denies dyspnea Gastrointestinal: Gastrointestinal: Reports as per HPI and Reports no additional gastrointestinal complaints Exam Const: General: comfortable and awake Orientation/consciousness: patient oriented x3 GI: Inspection: other (abdominal distention much improved) GI Palp: Yes Soft to palpation, Yes Tenderness to palpation present (GI) (mild diffuse tenderness, improved), No Guarding due to palpation present (GI) and No Rebound tenderness present Auscultation: absent bowel sounds Objective Data Vital Signs Vital Signs: Vital Signs - 24 hr 01/04/23 10:24 01/04/23 10:44 01/04/23 11:01 Temperature Pulse Rate 111 H 97 Respiratory Rate 20 20 Blood Pressure 117/73 Pulse Oximetry 91 93 91 Oxygen Delivery Oxygen Flow Rate 01/04/23 11:02 01/04/23 14:15 01/04/23 16:00 Temperature 97.3 F L 98.5 F Pulse Rate 112 H 69 116 H Respiratory Rate 19 20 16 Blood Pressure 105/62 115/71 Pulse Oximetry 94 92 92 Oxygen Delivery Oxygen Flow Rate 01/04/23 17:38 01/04/23 16:00 01/04/23 18:21 Temperature Pulse Rate 105 H 117 H Respiratory Rate Blood Pressure Pulse Oximetry 93 Oxygen Delivery Room Air Oxygen Flow Rate 01/04/23 18:00 01/04/23 20:55 01/04/23 20:00 Temperature 97.5 F L Pulse Rate 89 83 Respiratory Rate 16 Blood Pressure 89/67 L Pulse Oximetry 94 94 Oxygen Delivery Nasal Cannula Oxygen Flow Rate 2 01/04/23 20:00 01/04/23 20:00 01/04/23
[2023-01-05 10:33] LABS: Troponin I 0.072 ng/mL (0.000-0.034)
[2023-01-05] MEDS: POTASSIUM CHLORIDE INJ 40 MEQ in SODIUM CHLORIDE 0.9% IV 500 ML 130 MEQ IVPB (11:41)
[2023-01-05] MEDS: PANTOPRAZOLE SODIUM IV 40 MG VIAL IV PUSH (11:41)
[2023-01-05 12:26] LABS: Creatinine Urine 100.8 mg/dL
[2023-01-05 12:30] LABS: Sodium Urine Random 40 meq/L
[2023-01-05 13:03] LABS: Partial Thromboplastin Time 67.6 SECONDS (22.3-36.8)
[2023-01-05] MEDS: METOPROLOL TARTRATE INJ 5 MG/5 ML VIAL IV PUSH ×2 (14:23→22:55)
[2023-01-05] MEDS: HEPARIN SOD/D5W 100 UNITS/ML 25,000 UNITS/250 ML BAG 14 UNITS IV CONT (14:25)
[2023-01-05] MEDS: ONDANSETRON INJ 4 MG/2 ML VIAL IV PUSH (17:49)
[2023-01-05 19:20] LABS: Alanine Aminotransferase 40 U/L (6-50); Albumin Level 3.2 g/dL (3.5-5.1); Alkaline Phosphatase 43 U/L (38-126); Anion Gap 4 mmol/L (8-16); Aspartate Amino Transferase 32 U/L (17-59); Bilirubin,Total 1.3 mg/dL (0.2-1.3); Blood Urea Nitrogen 50 mg/dL (9-20); Calcium 8.8 mg/dL (8.4-10.2); Carbon Dioxide 36 mmol/L (22-30); Chloride 102 mmol/L (98-107); Estimated CRCL calculation 65 ml/min; Estimated Glomerular Filt Rate > 60; Glucose 98 mg/dL (65-110); Potassium 3.8 mmol/L (3.4-5.0); Sodium 142 mmol/L (137-145)
[2023-01-05 20:16] LABS: Partial Thromboplastin Time 152.7 SECONDS (22.3-36.8)
[2023-01-05] MEDS: FLUTICASONE/SALMETEROL 115-21 MCG INHALER 1 PUFF 2 PUFF INHALATION (21:25)
[2023-01-06] VITALS (23 sets, daily range): BP systolic 96–112; BP diastolic 44–66; PULSE 61–82; RESP 16–20; TEMP 36.2–37.2; O2SAT 94–99
[2023-01-06] MEDS: ALBUTEROL SULFATE NEB 2.5 MG/3 ML INH INHALATION ×4 (02:54→20:44)
[2023-01-06 03:25] LABS: Basophils Percent Auto 0.2 % (0.2-1.2); Eosinophils Percent Auto 0.4 % (0-4.4); Hematocrit 39.6 % (42.0-52.0); Hemoglobin 12.7 g/dL (14.0-18.0); Immature Granulocyte Absolute 0.03 K/mm3 (0.00-0.031); Immature Granulocyte Percent A 0.3 % (0-0.5); Lymphocytes Absolute Auto 0.77 K/mm3 (0.9-3.2); Lymphocytes Percent Auto 8.6 % (18.3-44.2); Mean Corpuscular HGB Conc 32.1 g/dl (32-36); Mean Corpuscular Hemoglobin 32.2 pg (26-34); Mean Corpuscular Volume 100.5 fl (80-100); Mean Platelet Volume 10.2 fl (7.4-10.4); Monocytes Absolute Auto 0.9 K/mm3 (0.1-0.6); Monocytes Percent Auto 10.2 % (2.6-8.5); Neutrophils Absolute Auto 7.2 K/mm3 (1.3-6.7); Neutrophils Percent Auto 80.3 % (45.5-73.1); Platelet Count Result 173 k/mm3 (150-375); Red Blood Count 3.94 M/mm3 (4.6-6.20); Red Cell Distribution Width 13.2 % (11.5-14.5); White Blood Count 8.9 K/mm3 (4.5-10.0)
[2023-01-06 03:38] LABS: Partial Thromboplastin Time 98.1 SECONDS (22.3-36.8)
[2023-01-06 03:48] LABS: Alanine Aminotransferase 39 U/L (6-50); Albumin Level 3.3 g/dL (3.5-5.1); Alkaline Phosphatase 41 U/L (38-126); Anion Gap 1 mmol/L (8-16); Aspartate Amino Transferase 26 U/L (17-59); Bilirubin,Total 1.1 mg/dL (0.2-1.3); Blood Urea Nitrogen 39 mg/dL (9-20); Calcium 8.3 mg/dL (8.4-10.2); Carbon Dioxide 39 mmol/L (22-30); Chloride 102 mmol/L (98-107); Estimated CRCL calculation 54 ml/min; Estimated Glomerular Filt Rate > 60; Glucose 97 mg/dL (65-110); Sodium 142 mmol/L (137-145)
[2023-01-06] MEDS: metroNIDAZOLE 500 MG/ISO 100ML 500 MG/100 ML BAG 100 MG IVPB ×3 (05:17→21:41)
[2023-01-06] MEDS: METOPROLOL TARTRATE INJ 5 MG/5 ML VIAL IV PUSH ×3 (05:17→21:42)
[2023-01-06] MEDS: FLUTICASONE/SALMETEROL 115-21 MCG INHALER 1 PUFF 2 PUFF INHALATION ×2 (08:09→20:52)
[2023-01-06 09:07] LABS: Partial Thromboplastin Time 73.2 SECONDS (22.3-36.8)
--- NOTE | 2023-01-06 09:26 | PM.IMPN ---
Progress Note: A&P Assessment and Plan (1) Small bowel obstruction: Code(s): K56.609 - Unspecified intestinal obstruction, unspecified as to partial versus complete obstruction Status: Acute Assessment and Plan: Appreciate general surgery consultation, continue NG tube, NPO Improving, AXR still shows SBO, defer further management to surgery, may need SBFT Cipro/Flagyl started 01/04 Zofran as needed, hold home medications (2) ÓSCAR (acute kidney injury): Code(s): N17.9 - Acute kidney failure, unspecified Status: Acute Assessment and Plan: Likely prerenal due to dehydration from severe nausea and vomiting Continue IV fluids, monitor creatinine 01/05: cr slightly worsened with IVF, cont to monitor on IVF, suspect needs more time to affect creat, check FeNa 01/06: FeNa indicative of prerenal ÓSCAR, cont IVF, increase rate to 125 from 75 as cr bumped a bit again from 0.9 to 1.1 (3) Elevated troponin: Code(s): R77.8 - Other specified abnormalities of plasma proteins Status: Acute Assessment and Plan: Continue to trend, appreciate cardiology consult, follow-up echo Continue heparin drip Venous dopplers negative for DVT Chronic LBBB Troponin peaked at 0.139, trending down now to 0.072 (4) Leucocytosis: Code(s): D72.829 - Elevated white blood cell count, unspecified Status: Acute Assessment and Plan: Unsure of etiology, could be reactive vs steroid use vs infectious etiology, down to 11 01/05 from 16 at admission 01/04 Was on prednisone as outpatient for possible pneumonia after recent rib fractures and cough developed 01/06: Resolved, cont cipro/flagyl (5) Dehydration: Code(s): E86.0 - Dehydration Status: Acute Assessment and Plan: as above (6) Right rib fracture: Code(s): S22.31XA - Fracture of one rib, right side, initial encounter for closed fracture Status: Acute Assessment and Plan: Monitor, Lidoderm patch, Tylenol as needed S/p mechanical fall 01/05: Rib series xray showed acute fractures of ribs 8-12 on right, cont pain control (7) Atrial fibrillation with RVR: Code(s): I48.91 - Unspecified atrial fibrillation Status: Acute Assessment and Plan: Consult cardiology, monitor telemetry, cont heparin drip, cont scheduled metoprolol IV Maintain potassium > 4 and mag > 2 Plan DVT prophylaxis with heparin drip GI prophylaxis not indicated Code status full code Subjective Date/time seen: 01/06/23 09:26 Interval history: 72-year-old male with history of asthma, hypertension presenting with nausea and vomiting, found to have SBO on admission. No overnight events noted. No chest pain or shortness of breath. No nausea, vomiting or diarrhea. No fevers or chills. +flatus. +productive cough. Review of Systems Review of Systems: 12 point review of systems was assessed and was negative except as noted in the HPI Exam Narrative: General: No acute distress, alert and oriented per baseline, ngt in place to suction, bile noted in canister, 2L overnight HEENT: Atraumatic, normocephalic, mucous membranes moist CV: Regular rate and rhythm, S1, S2 Lungs: Clear to auscultation bilaterally, no rales or crackles noted, no wheezes, good air entry Abdomen: Soft, nontender, nondistended, hypoactive BS Extremities: Normal to inspection Skin: No rashes noted, no lesions or wounds seen Objective Data Vital Signs Vital Signs: Vital Signs - 24 hr 01/05/23 12:00 01/05/23 10:00 01/05/23 12:00 Temperature 98 F Pulse Rate 85 103 H Respiratory Rate 18 Blood Pressure 103/42 L Pulse Oximetry 92 92 Oxygen Delivery Nasal Cannula Oxygen Flow Rate 2 01/05/23 12:00 01/05/23 14:00 01/05/23 14:23 Temperature Pulse Rate 106 H 98 95 Respiratory Rate Blood Pressure Pulse Oximetry Oxygen Delivery Oxygen Flow Rate 0
[2023-01-06] MEDS: PANTOPRAZOLE SODIUM IV 40 MG VIAL IV PUSH (09:37)
[2023-01-06] MEDS: CIPROFLOXACIN 400 MG/D5W 200ML 200 ML 200 MG IVPB ×2 (09:37→20:40)
--- NOTE | 2023-01-06 09:42 | PM.PNGS ---
Progress Note: A&P Assessment and Plan (1) Small bowel obstruction: Code(s): K56.609 - Unspecified intestinal obstruction, unspecified as to partial versus complete obstruction Status: Acute Assessment and Plan: NG output less and abdominal exam improved. Still no bowel function. Will order a small bowel follow through today to further evaluate. (2) Pneumonia: Code(s): J18.9 - Pneumonia, unspecified organism Status: Acute (3) Elevated troponin: Code(s): R77.8 - Other specified abnormalities of plasma proteins Status: Acute Assessment and Plan: Troponins peaked at 0.139, Cardiology following, still on a Heparin drip. Not complaining of any chest pain or discomfort. (4) ÓSCAR (acute kidney injury): Code(s): N17.9 - Acute kidney failure, unspecified Status: Acute (5) Status post fall: Code(s): Z91.81 - History of falling Status: Acute Plan I have discussed the patient's case and plan of care with Dr. Hoff. Subjective Subjective Date/Time Seen: 01/06/23 09:42 Patient reports: no new complaints, flatus and no bowel movement Interval history: Patient feeling about the same today. NG output yesterday during day shift was 450 cc and no documented output overnight. Nursing staff not sure of NG output overnight. Patient still having upper abdominal discomfort, bloating improved. Still only little flatus, no BM. Review of Systems Review of Systems: ROS unchanged Exam Const: General: no acute distress Orientation/consciousness: patient oriented x3 GI: Inspection: non-distended and other (Ecchymosis in RLQ extending laterally to right flank s/p fall is unchanged) GI Palp: Yes Soft to palpation, Yes Tenderness to palpation present (GI) (mild diffuse upper abdominal tenderness), No Guarding due to palpation present (GI) and No Rebound tenderness present Auscultation: normal bowel sounds Objective Data Vital Signs Vital Signs: Vital Signs - 24 hr 01/05/23 12:00 01/05/23 10:00 01/05/23 12:00 Temperature 98 F Pulse Rate 85 103 H Respiratory Rate 18 Blood Pressure 103/42 L Pulse Oximetry 92 92 Oxygen Delivery Nasal Cannula Oxygen Flow Rate 2 01/05/23 12:00 01/05/23 14:00 01/05/23 14:23 Temperature Pulse Rate 106 H 98 95 Respiratory Rate Blood Pressure Pulse Oximetry Oxygen Delivery Oxygen Flow Rate 01/05/23 15:56 01/05/23 16:00 01/05/23 16:00 Temperature 98.6 F Pulse Rate 76 80 Respiratory Rate 16 Blood Pressure 99/66 L Pulse Oximetry 92 96 Oxygen Delivery Nasal Cannula Oxygen Flow Rate 2 01/05/23 18:00 01/05/23 20:00 01/05/23 20:00 Temperature 99.1 F Pulse Rate 85 82 78 Respiratory Rate 16 Blood Pressure 93/54 L Pulse Oximetry 96 Oxygen Delivery Oxygen Flow Rate 01/05/23 20:00 01/05/23 21:27 01/05/23 21:28 Temperature Pulse Rate 78 81 Respiratory Rate 16 18 Blood Pressure Pulse Oximetry 96 95 Oxygen Delivery Nasal Cannula Nasal Cannula Oxygen Flow Rate 2 2 01/05/23 21:39 01/05/23 22:55 01/05/23 22:00 Temperature Pulse Rate 82 81 72 Respiratory Rate 18 Blood Pressure Pulse Oximetry Oxygen Delivery Oxygen Flow Rate 01/06/23 00:00 01/06/23 00:00 01/06/23 00:00 Temperature 97.1 F L Pulse Rate 67 70 70 Respiratory Rate 18 18 Blood Pressure 100/44 L Pulse Oximetry 97 97 Oxygen Delivery Nasal Cannula Oxygen Flow Rate 2 01/06/23 02:00 01/06/23 02:54 01/06/23 03:01 Temperature Pulse Rate 68 78 80 Respiratory Rate 18 18 Blood Pressure Pulse Oximetry Oxygen Delivery Oxygen Flow Rate 01/06/23 04:00 01/06/23 05:17 01/06/23 04:00 Temperature 97.9 F Pulse Rate 68 82 73 Respiratory Rate 18 Blood Pressure 96/54 L Pulse Oximetry 97 Oxygen Delivery Oxygen Flow Rate 01/06/23 04:00 01/06/23 05:51 01/06/23 07:55 Temperature 98.6 F Pulse Rate 73 82 64
[2023-01-06] MEDS: LIDOCAINE 5% PATCH 1 PATCH TRANSDERM (09:49)
[2023-01-06] MEDS: ONDANSETRON INJ 4 MG/2 ML VIAL IV PUSH ×2 (10:14→14:05)
--- NOTE | 2023-01-06 10:16 | PM.PNCARD ---
Progress Note: A&P Assessment and Plan (1) Elevated troponin: Code(s): R77.8 - Other specified abnormalities of plasma proteins Status: Acute Assessment and Plan: No chest pain. Has LBBB, which is chronic per the patient. Continue to trend troponins until peak. (2) Small bowel obstruction: Code(s): K56.609 - Unspecified intestinal obstruction, unspecified as to partial versus complete obstruction Status: Acute Assessment and Plan: General Surgery has been consulted. NG tube in place. (3) Atrial arrhythmia: Code(s): I49.8 - Other specified cardiac arrhythmias Status: Acute Assessment and Plan: Initial EKG read as possible atrial flutter or atrial tachycardia. Telemetry shows tachycardia initially, however, once NG tube was placed and patient started feeling better, his tachycardia improved. On telemetry, there is sinus rhythm with frequent ectopic beats with PACS/PVCs, appears to be some NSVT as well. Cannot take oral meds at this time. Metoprolol 5 mg IV Q 8 hours will be scheduled. Replace electrolytes as needed. (4) Cardiomyopathy: Code(s): I42.9 - Cardiomyopathy, unspecified Status: Acute Assessment and Plan: doeshave a moderate cardiomyopathy. Continue metoprolol IV for now and eventually will need an ischemic workup once bowel obstruction is resolved. Discontinue amlodipine. When able, will transition to Entresto Subjective Date/time seen: 01/06/23 10:16 Interval history: 72-year-old male with history of asthma, hypertension presenting with nausea and vomiting, found to have SBO on admission. Date of service 01/05/2023: Feels a little bit better. No chest pain or shortness of breath. Date of service 01/06/2023: Rhythm seems to be more stable with IV metoprolol scheduled. He is still unable to take p.o.. No chest pain But does have some shortness of breath Review of Systems Review of Systems: All systems reviewed & are unremarkable except as noted in HPI and below Cardiovascular: Cardiovascular: Denies chest pain and Reports dyspnea Respiratory: Respiratory: Denies dyspnea Exam Narrative: awake alert Const: General: no acute distress HENMT: Mouth: Yes moist mucous membranes Other: NG tube in place Eyes: General: appearance normal, both eyes and all related structures Sclera: sclerae normal Neck: Neck: supple Resp: Effort & Inspection: normal respiratory effort Auscultation: clear to auscultation bilaterally Cardio: Rate: regular rate Rhythm: abnormal rhythm with ectopic beats GI: Inspection: distended Skin: General skin exam: normal color Neuro: Speech: normal speech Extrem: General: normal to inspection Psych: Mental Status: mental status grossly normal Affect: normal affect Objective Data Vital Signs Vital Signs: Vital Signs - 24 hr 01/05/23 12:00 01/05/23 12:00 01/05/23 12:00 Temperature 36.6 C Pulse Rate 85 106 H Respiratory Rate 18 Blood Pressure 103/42 L Pulse Oximetry 92 92 Oxygen Delivery Nasal Cannula Oxygen Flow Rate 2 01/05/23 14:00 01/05/23 14:23 01/05/23 15:56 Temperature Pulse Rate 98 95 Respiratory Rate Blood Pressure Pulse Oximetry 92 Oxygen Delivery Nasal Cannula Oxygen Flow Rate 2 01/05/23 16:00 01/05/23 16:00 01/05/23 18:00 Temperature 37.0 C Pulse Rate 76 80 85 Respiratory Rate 16 Blood Pressure 99/66 L Pulse Oximetry 96 Oxygen Delivery Oxygen Flow Rate 01/05/23 20:00 01/05/23 20:00 01/05/23 20:00 Temperature 37.3 C Pulse Rate 82 78 78 Respiratory Rate 16 16 Blood Pressure 93/54 L Pulse Oximetry 96 96 Oxygen Delivery Nasal Cannula Oxygen Flow Rate 2 01/05/23 21:27 01/05/23 21:28 01/05/23 21:39 Temperature Pulse Rate 81 82 Respiratory Rate 18 18 Blood Pressure Pulse Oximetry 95 Oxygen Delivery Nasal Cannula Oxygen Flow Rate 2 01/05/23 22:55
[2023-01-06] MEDS: HEPARIN SOD/D5W 100 UNITS/ML 25,000 UNITS/250 ML BAG 11 UNITS IV CONT (16:14)
[2023-01-06] MEDS: SODIUM CHLORIDE 0.9% IV 1,000 ML 125 ML IV CONT (21:43)
[2023-01-07] VITALS (22 sets, daily range): BP systolic 99–115; BP diastolic 44–69; PULSE 62–87; RESP 12–20; TEMP 36.1–37; O2SAT 92–99
[2023-01-07] MEDS: ALBUTEROL SULFATE NEB 2.5 MG/3 ML INH INHALATION ×4 (02:51→21:03)
[2023-01-07] MEDS: metroNIDAZOLE 500 MG/ISO 100ML 500 MG/100 ML BAG 100 MG IVPB ×3 (05:34→21:49)
[2023-01-07] MEDS: METOPROLOL TARTRATE INJ 5 MG/5 ML VIAL IV PUSH ×3 (05:35→21:49)
[2023-01-07 05:59] LABS: Basophils Percent Auto 0.1 % (0.2-1.2); Eosinophils Absolute Auto 0.1 K/mm3 (0-0.3); Hematocrit 39.1 % (42.0-52.0); Hemoglobin 12.7 g/dL (14.0-18.0); Immature Granulocyte Absolute 0.04 K/mm3 (0.00-0.031); Immature Granulocyte Percent A 0.5 % (0-0.5); Lymphocytes Percent Auto 7.5 % (18.3-44.2); Mean Corpuscular HGB Conc 32.5 g/dl (32-36); Mean Corpuscular Hemoglobin 32.7 pg (26-34); Mean Corpuscular Volume 100.8 fl (80-100); Monocytes Absolute Auto 0.7 K/mm3 (0.1-0.6); Monocytes Percent Auto 9.3 % (2.6-8.5); Neutrophils Absolute Auto 6.5 K/mm3 (1.3-6.7); Neutrophils Percent Auto 81.6 % (45.5-73.1); Platelet Count Result 185 k/mm3 (150-375); Red Blood Count 3.88 M/mm3 (4.6-6.20); Red Cell Distribution Width 13.2 % (11.5-14.5)
[2023-01-07 06:11] LABS: Alanine Aminotransferase 30 U/L (6-50); Albumin Level 3.3 g/dL (3.5-5.1); Alkaline Phosphatase 42 U/L (38-126); Anion Gap 3 mmol/L (8-16); Aspartate Amino Transferase 20 U/L (17-59); Bilirubin,Total 0.9 mg/dL (0.2-1.3); Blood Urea Nitrogen 29 mg/dL (9-20); Calcium 7.9 mg/dL (8.4-10.2); Carbon Dioxide 32 mmol/L (22-30); Chloride 108 mmol/L (98-107); Estimated CRCL calculation 73 ml/min; Estimated Glomerular Filt Rate > 60; Glucose 94 mg/dL (65-110); Partial Thromboplastin Time 74.3 SECONDS (22.3-36.8); Potassium 3.6 mmol/L (3.4-5.0); Sodium 143 mmol/L (137-145)
[2023-01-07] MEDS: FLUTICASONE/SALMETEROL 115-21 MCG INHALER 1 PUFF 2 PUFF INHALATION ×2 (07:05→21:05)
[2023-01-07] MEDS: SODIUM CHLORIDE 0.9% IV 1,000 ML 125 ML IV CONT (08:20)
[2023-01-07] MEDS: CIPROFLOXACIN 400 MG/D5W 200ML 200 ML 200 MG IVPB ×2 (08:23→20:04)
[2023-01-07] MEDS: PANTOPRAZOLE SODIUM IV 40 MG VIAL IV PUSH (08:25)
[2023-01-07] MEDS: LIDOCAINE 5% PATCH 1 PATCH TRANSDERM (08:25)
--- NOTE | 2023-01-07 09:52 | PM.IMPN ---
Progress Note: A&P Assessment and Plan (1) Small bowel obstruction: Code(s): K56.609 - Unspecified intestinal obstruction, unspecified as to partial versus complete obstruction Status: Acute Assessment and Plan: Appreciate general surgery consultation, continue NG tube, NPO Improving, AXR + SBFT still show SBO 01/06, defer further management to surgery Cipro/Flagyl started 01/04 Zofran as needed, hold home medications (2) ÓSCAR (acute kidney injury): Code(s): N17.9 - Acute kidney failure, unspecified Status: Acute Assessment and Plan: Likely prerenal due to dehydration from severe nausea and vomiting Continue IV fluids, monitor creatinine 01/05: cr slightly worsened with IVF, cont to monitor on IVF, suspect needs more time to affect creat, check FeNa 01/06: FeNa indicative of prerenal ÓSCAR, cont IVF, increase rate to 125 from 75 as cr bumped a bit again from 0.9 to 1.1 01/07: cr resolved with IVF, d/c IVF as diet advanced to clears today, monitor (3) Elevated troponin: Code(s): R77.8 - Other specified abnormalities of plasma proteins Status: Acute Assessment and Plan: Continue to trend, appreciate cardiology consult, follow-up echo Continue heparin drip Venous dopplers negative for DVT Chronic LBBB Troponin peaked at 0.139, trending down now to 0.072 Ischemic workup needed after bowel obstruction resolves (4) Leucocytosis: Code(s): D72.829 - Elevated white blood cell count, unspecified Status: Acute Assessment and Plan: Unsure of etiology, could be reactive vs steroid use vs infectious etiology, down to 11 01/05 from 16 at admission 01/04 Was on prednisone as outpatient for possible pneumonia after recent rib fractures and cough developed 01/06: Resolved, cont cipro/flagyl (5) Dehydration: Code(s): E86.0 - Dehydration Status: Acute Assessment and Plan: resolved (6) Right rib fracture: Code(s): S22.31XA - Fracture of one rib, right side, initial encounter for closed fracture Status: Acute Assessment and Plan: Monitor, Lidoderm patch, Tylenol as needed S/p mechanical fall 01/05: Rib series xray showed acute fractures of ribs 8-12 on right, cont pain control (7) Atrial fibrillation with RVR: Code(s): I48.91 - Unspecified atrial fibrillation Status: Acute Assessment and Plan: Cardiology consult appreciated, monitor telemetry, cont heparin drip, cont scheduled metoprolol IV Maintain potassium > 4 and mag > 2 Plan DVT prophylaxis with heparin drip GI prophylaxis not indicated Code status full code Subjective Date/time seen: 01/07/23 09:52 Interval history: 72-year-old male with history of asthma, hypertension presenting with nausea and vomiting, found to have SBO on admission. No overnight events noted. No chest pain or shortness of breath. No nausea, vomiting or diarrhea. No fevers or chills. +flatus. +BM. Review of Systems Review of Systems: 12 point review of systems was assessed and was negative except as noted in the HPI Exam Narrative: General: No acute distress, alert and oriented per baseline, ngt in place to suction, bile noted in canister, 2L overnight HEENT: Atraumatic, normocephalic, mucous membranes moist CV: Regular rate and rhythm, S1, S2 Lungs: Clear to auscultation bilaterally, no rales or crackles noted, no wheezes, good air entry Abdomen: Soft, nontender, nondistended, hypoactive BS Extremities: Normal to inspection Skin: No rashes noted, no lesions or wounds seen Objective Data Vital Signs Vital Signs: Vital Signs - 24 hr 01/06/23 12:00 01/06/23 13:58 01/06/23 12:00 Temperature 98.8 F Pulse Rate 79 72 Respiratory Rate 16 Blood Pressure 112/56 L Pulse Oximetry 95 96 Oxygen Delivery Nasal Cannula Oxygen Flow Rate 2 01/06/23 15:08 01/06/23 16:00 01/06/23 16:00 Temperature 98
--- NOTE | 2023-01-07 10:38 | PM.PNCARD ---
Progress Note: A&P Assessment and Plan (1) Cardiomyopathy: Code(s): I42.9 - Cardiomyopathy, unspecified Status: Acute Plan 72-year-old man with left bundle branch block and asymptomatic left ventricular systolic dysfunction. Admitted to the hospital with small-bowel obstruction which obviously is improving with NG decompression. Will recommend starting guideline directed medical therapy for LV dysfunction once he is taking medication and no longer is NPO. If he remains hemodynamically stable without cardiovascular issues will anticipate proceeding with left heart catheterization as an outpatient. There is no urgency to perform this during this hospitalization as he recovers from a bowel obstruction. Juaquin Mauricio MD [facility] WITH [facility] Subjective Date/time seen: Date of service: 01/07/23 10:38 Interval history: Follow-up visit in this 72-year-old man with: Chronic left bundle branch block and a newly identified left ventricular systolic dysfunction. Patient admitted to the hospital for small bowel obstruction. No cardiovascular symptoms or complaints. Patient has been on NG suction/decompression and has improved in fact had bowel movement this morning and is feeling much better surgical team has not yet seen him on rounds. Exam Const: General: comfortable and no acute distress Other: Pleasant well-developed well-nourished white male no distress NG suction in place HENMT: Mouth: Yes moist mucous membranes Eyes: Sclera: sclerae normal Neck: Neck: supple and no JVD Resp: Effort & Inspection: normal respiratory effort Auscultation: clear to auscultation bilaterally Cardio: Rate: regular rate Rhythm: regular rhythm Other: PMI difficult to palpate, no murmur GI: GI Palp: Yes Soft to palpation Skin: General skin exam: normal color Neuro: Other: Alert and oriented x3 Extrem: Other: Good perfusion, no edema Objective Data Vital Signs Vital Signs: Vital Signs - 24 hr 01/06/23 12:00 01/06/23 13:58 01/06/23 12:00 Temperature 37.1 C Pulse Rate 79 72 Respiratory Rate 16 Blood Pressure 112/56 L Pulse Oximetry 95 96 Oxygen Delivery Nasal Cannula Oxygen Flow Rate 2 01/06/23 15:08 01/06/23 16:00 01/06/23 16:00 Temperature 37.2 C Pulse Rate 74 74 Respiratory Rate 18 18 Blood Pressure 112/60 Pulse Oximetry 95 96 Oxygen Delivery Nasal Cannula Oxygen Flow Rate 2 01/06/23 12:00 01/06/23 14:00 01/06/23 16:00 Temperature Pulse Rate 73 64 73 Respiratory Rate Blood Pressure Pulse Oximetry Oxygen Delivery Oxygen Flow Rate 01/06/23 18:00 01/06/23 20:40 01/06/23 20:40 Temperature Pulse Rate 73 77 77 Respiratory Rate 18 Blood Pressure Pulse Oximetry 94 Oxygen Delivery Nasal Cannula Oxygen Flow Rate 2 01/06/23 20:48 01/06/23 20:00 01/06/23 21:42 Temperature 36.4 C L Pulse Rate 73 68 82 Respiratory Rate 18 18 Blood Pressure 101/50 L Pulse Oximetry 98 Oxygen Delivery Oxygen Flow Rate 01/06/23 20:00 01/06/23 20:00 01/06/23 22:00 Temperature Pulse Rate 70 70 65 Respiratory Rate 18 Blood Pressure Pulse Oximetry 94 Oxygen Delivery Nasal Cannula Oxygen Flow Rate 2 01/07/23 00:00 01/07/23 00:00 01/07/23 00:00 Temperature 37.0 C Pulse Rate 64 65 65 Respiratory Rate 20 20 Blood Pressure 106/55 L Pulse Oximetry 98 98 Oxygen Delivery Nasal Cannula Oxygen Flow Rate 2 01/07/23 02:00 01/07/23 02:50 01/07/23 02:58 Temperature Pulse Rate 69 69 71 Respiratory Rate 18 18 Blood Pressure Pulse Oximetry Oxygen Delivery Oxygen Flow Rate 01/07/23 04:00 01/07/23 04:00 01/07/23 04:00 Temperature 36.6 C Pulse Rate 79 79 76 Respiratory Rate 18 20 Blood Pressure 115/69 Pulse Oximetry 98 98 Oxygen Delivery Nasal Cannula Oxygen Flow Rate 2 01/07/23 05:35 01/07/23 06:00 01/07/23 08:00 Temperature 36.3 C L Pulse Rate 74 62
--- NOTE | 2023-01-07 13:15 | PM.PNGS ---
Progress Note: A&P Assessment and Plan (1) Small bowel obstruction: Code(s): K56.609 - Unspecified intestinal obstruction, unspecified as to partial versus complete obstruction Status: Acute Assessment and Plan: NG has been clamped all morning. Will remove NG today and continue clear liquids. Advance diet tomorrow if continuing to improve. Will repeat abdominal x-ray in AM. (2) Pneumonia: Code(s): J18.9 - Pneumonia, unspecified organism Status: Acute (3) Elevated troponin: Code(s): R77.8 - Other specified abnormalities of plasma proteins Status: Acute Assessment and Plan: Troponins peaked at 0.139, Cardiology following, still on a Heparin drip. Not complaining of any chest pain or discomfort. OK to transition to oral anticoagulation (4) ÓSCAR (acute kidney injury): Code(s): N17.9 - Acute kidney failure, unspecified Status: Acute (5) Status post fall: Code(s): Z91.81 - History of falling Status: Acute Subjective Subjective Date/Time Seen: 01/07/23 13:15 Interval history: Bowels moving. NG has been clamped. No nausea, bloating, or vomiting. No abdominal pain. Exam Const: General: no acute distress Orientation/consciousness: patient oriented x3 GI: Inspection: non-distended and other (Ecchymosis in RLQ extending laterally to right flank s/p fall is unchanged) GI Palp: Yes Soft to palpation, No Tenderness to palpation present (GI), No Guarding due to palpation present (GI) and No Rebound tenderness present Auscultation: normal bowel sounds Objective Data Vital Signs Vital Signs: Vital Signs - 24 hr 01/06/23 13:58 01/06/23 15:08 01/06/23 16:00 Temperature 37.2 C Pulse Rate 79 74 74 Respiratory Rate 18 18 Blood Pressure 112/60 Pulse Oximetry 95 Oxygen Delivery Oxygen Flow Rate 01/06/23 16:00 01/06/23 14:00 01/06/23 16:00 Temperature Pulse Rate 64 73 Respiratory Rate Blood Pressure Pulse Oximetry 96 Oxygen Delivery Nasal Cannula Oxygen Flow Rate 2 01/06/23 18:00 01/06/23 20:40 01/06/23 20:40 Temperature Pulse Rate 73 77 77 Respiratory Rate 18 Blood Pressure Pulse Oximetry 94 Oxygen Delivery Nasal Cannula Oxygen Flow Rate 2 01/06/23 20:48 01/06/23 20:00 01/06/23 21:42 Temperature 36.4 C L Pulse Rate 73 68 82 Respiratory Rate 18 18 Blood Pressure 101/50 L Pulse Oximetry 98 Oxygen Delivery Oxygen Flow Rate 01/06/23 20:00 01/06/23 20:00 01/06/23 22:00 Temperature Pulse Rate 70 70 65 Respiratory Rate 18 Blood Pressure Pulse Oximetry 94 Oxygen Delivery Nasal Cannula Oxygen Flow Rate 2 01/07/23 00:00 01/07/23 00:00 01/07/23 00:00 Temperature 37.0 C Pulse Rate 64 65 65 Respiratory Rate 20 20 Blood Pressure 106/55 L Pulse Oximetry 98 98 Oxygen Delivery Nasal Cannula Oxygen Flow Rate 2 01/07/23 02:00 01/07/23 02:50 01/07/23 02:58 Temperature Pulse Rate 69 69 71 Respiratory Rate 18 18 Blood Pressure Pulse Oximetry Oxygen Delivery Oxygen Flow Rate 01/07/23 04:00 01/07/23 04:00 01/07/23 04:00 Temperature 36.6 C Pulse Rate 79 79 76 Respiratory Rate 18 20 Blood Pressure 115/69 Pulse Oximetry 98 98 Oxygen Delivery Nasal Cannula Oxygen Flow Rate 2 01/07/23 05:35 01/07/23 06:00 01/07/23 08:00 Temperature 36.3 C L Pulse Rate 74 62 76 Respiratory Rate 12 Blood Pressure 111/64 Pulse Oximetry 97 Oxygen Delivery Oxygen Flow Rate 01/07/23 07:05 01/07/23 07:05 01/07/23 07:15 Temperature Pulse Rate 62 62 65 Respiratory Rate 18 18 18 Blood Pressure Pulse Oximetry 97 Oxygen Delivery Nasal Cannula Oxygen Flow Rate 3.5 01/07/23 08:00 01/07/23 10:00 01/07/23 08:00 Temperature Pulse Rate 87 73 Respiratory Rate Blood Pressure Pulse Oximetry 93 Oxygen Delivery Room Air Oxygen Flow Rate 01/07/23 12:00 Temperature 36.4 C
[2023-01-07] MEDS: ONDANSETRON INJ 4 MG/2 ML VIAL IV PUSH (15:24)
[2023-01-08] VITALS (17 sets, daily range): BP systolic 115–123; BP diastolic 57–76; PULSE 67–96; RESP 16–20; TEMP 36.7; O2SAT 91–99
[2023-01-08] MEDS: MORPHINE SULFATE (*CRX) 2 MG/ML INJ 1 MG IV PUSH ×2 (01:49→10:00)
[2023-01-08] MEDS: ONDANSETRON INJ 4 MG/2 ML VIAL IV PUSH (01:52)
[2023-01-08] MEDS: ALBUTEROL SULFATE NEB 2.5 MG/3 ML INH INHALATION ×4 (02:06→19:59)
[2023-01-08 04:25] LABS: Basophils Percent Auto 0.1 % (0.2-1.2); Eosinophils Absolute Auto 0.1 K/mm3 (0-0.3); Eosinophils Percent Auto 1.8 % (0-4.4); Hematocrit 39.8 % (42.0-52.0); Hemoglobin 13.1 g/dL (14.0-18.0); Immature Granulocyte Absolute 0.04 K/mm3 (0.00-0.031); Immature Granulocyte Percent A 0.6 % (0-0.5); Lymphocytes Absolute Auto 0.88 K/mm3 (0.9-3.2); Lymphocytes Percent Auto 12.2 % (18.3-44.2); Mean Corpuscular HGB Conc 32.9 g/dl (32-36); Mean Corpuscular Hemoglobin 32.8 pg (26-34); Mean Corpuscular Volume 99.7 fl (80-100); Mean Platelet Volume 10.2 fl (7.4-10.4); Monocytes Absolute Auto 0.7 K/mm3 (0.1-0.6); Monocytes Percent Auto 9.8 % (2.6-8.5); Neutrophils Absolute Auto 5.5 K/mm3 (1.3-6.7); Neutrophils Percent Auto 75.5 % (45.5-73.1); Platelet Count Result 192 k/mm3 (150-375); Red Blood Count 3.99 M/mm3 (4.6-6.20); Red Cell Distribution Width 12.9 % (11.5-14.5); White Blood Count 7.2 K/mm3 (4.5-10.0)
[2023-01-08 04:39] LABS: Potassium 3.6 mmol/L (3.4-5.0)
[2023-01-08 04:41] LABS: Alanine Aminotransferase 30 U/L (6-50); Albumin Level 3.4 g/dL (3.5-5.1); Alkaline Phosphatase 47 U/L (38-126); Anion Gap 3 mmol/L (8-16); Aspartate Amino Transferase 25 U/L (17-59); Blood Urea Nitrogen 21 mg/dL (9-20); Calcium 7.7 mg/dL (8.4-10.2); Carbon Dioxide 31 mmol/L (22-30); Chloride 104 mmol/L (98-107); Estimated CRCL calculation 73 ml/min; Estimated Glomerular Filt Rate > 60; Glucose 95 mg/dL (65-110); Sodium 138 mmol/L (137-145)
[2023-01-08] MEDS: metroNIDAZOLE 500 MG/ISO 100ML 500 MG/100 ML BAG 100 MG IVPB (05:38)
[2023-01-08] MEDS: METOPROLOL TARTRATE INJ 5 MG/5 ML VIAL IV PUSH ×3 (05:38→21:16)
[2023-01-08] MEDS: ALENDRONATE SODIUM 35 MG TABLET PO (05:38)
[2023-01-08] MEDS: FLUTICASONE/SALMETEROL 115-21 MCG INHALER 1 PUFF 2 PUFF INHALATION ×2 (08:31→20:00)
--- NOTE | 2023-01-08 08:46 | PM.IMPN ---
Progress Note: A&P Assessment and Plan (1) Small bowel obstruction: Code(s): K56.609 - Unspecified intestinal obstruction, unspecified as to partial versus complete obstruction Status: Acute Assessment and Plan: Appreciate general surgery consultation, improving, diet advancing Cipro/Flagyl started 01/04, end date 01/10 to complete 7 day course, will transition to oral 01/08 Zofran as needed, restart home meds (2) ÓSCAR (acute kidney injury): Code(s): N17.9 - Acute kidney failure, unspecified Status: Acute Assessment and Plan: Likely prerenal due to dehydration from severe nausea and vomiting Continue IV fluids, monitor creatinine 01/05: cr slightly worsened with IVF, cont to monitor on IVF, suspect needs more time to affect creat, check FeNa 01/06: FeNa indicative of prerenal ÓSCAR, cont IVF, increase rate to 125 from 75 as cr bumped a bit again from 0.9 to 1.1 01/07: cr resolved with IVF, d/c IVF as diet advanced to clears today, monitor 01/08: resolved (3) Elevated troponin: Code(s): R77.8 - Other specified abnormalities of plasma proteins Status: Acute Assessment and Plan: Continue to trend, appreciate cardiology consult, echo showed an EF of 35-40% with indeterminate diastolic function, no significant valvular disease or pulmonary hypertension is noted Heparin drip d/c Venous dopplers negative for DVT Chronic LBBB Troponin peaked at 0.139, trending down now to 0.072 Ischemic workup needed after bowel obstruction resolves (4) Leucocytosis: Code(s): D72.829 - Elevated white blood cell count, unspecified Status: Acute Assessment and Plan: Unsure of etiology, could be reactive vs steroid use vs infectious etiology, down to 11 01/05 from 16 at admission 01/04 Was on prednisone as outpatient for possible pneumonia after recent rib fractures and cough developed 01/06: Resolved, cont cipro/flagyl (5) Dehydration: Code(s): E86.0 - Dehydration Status: Acute Assessment and Plan: resolved (6) Right rib fracture: Code(s): S22.31XA - Fracture of one rib, right side, initial encounter for closed fracture Status: Acute Assessment and Plan: Monitor, Lidoderm patch, Tylenol as needed S/p mechanical fall 01/05: Rib series xray showed acute fractures of ribs 8-12 on right, cont pain control (7) Atrial fibrillation with RVR: Code(s): I48.91 - Unspecified atrial fibrillation Status: Acute Assessment and Plan: Cardiology consult appreciated, monitor telemetry, cont heparin drip, cont scheduled metoprolol IV Maintain potassium > 4 and mag > 2 Plan DVT prophylaxis with heparin drip GI prophylaxis not indicated Code status full code Subjective Date/time seen: 01/08/23 08:46 Interval history: 72-year-old male with history of asthma, hypertension presenting with nausea and vomiting, found to have SBO on admission. No overnight events noted. No chest pain or shortness of breath. No nausea, vomiting or diarrhea. No fevers or chills. +BM, + flatus, feels much better, good po intake Review of Systems Review of Systems: 12 point review of systems was assessed and was negative except as noted in the HPI Exam Narrative: General: No acute distress, alert and oriented per baseline HEENT: Atraumatic, normocephalic, mucous membranes moist CV: Regular rate and rhythm, S1, S2 Lungs: Clear to auscultation bilaterally, no rales or crackles noted, no wheezes, good air entry Abdomen: Soft, nontender, nondistended, hypoactive BS Extremities: Normal to inspection Skin: No rashes noted, no lesions or wounds seen Objective Data Vital Signs Vital Signs: Vital Signs - 24 hr 01/07/23 10:00 01/07/23 12:00 01/07/23 12:00 Temperature 97.6 F Pulse Rate 73 86 80 Respiratory Rate 16 Blood Pressure 114/49 L Pulse Oximetry 93 Oxygen Delivery
--- NOTE | 2023-01-08 09:33 | PM.PNGS ---
Progress Note: A&P Assessment and Plan (1) Small bowel obstruction: Code(s): K56.609 - Unspecified intestinal obstruction, unspecified as to partial versus complete obstruction Status: Acute Assessment and Plan: Advance to full liquids. No further signs of obstruction. Continue monitoring for recurrent symptoms. (2) Pneumonia: Code(s): J18.9 - Pneumonia, unspecified organism Status: Acute (3) Elevated troponin: Code(s): R77.8 - Other specified abnormalities of plasma proteins Status: Acute Assessment and Plan: Troponins peaked at 0.139, Cardiology following, still on a Heparin drip. Not complaining of any chest pain or discomfort. OK to transition to oral anticoagulation (4) ÓSCAR (acute kidney injury): Code(s): N17.9 - Acute kidney failure, unspecified Status: Acute (5) Status post fall: Code(s): Z91.81 - History of falling Status: Acute Subjective Subjective Date/Time Seen: 01/08/23 09:33 Interval history: Tolerating clears. No nausea, bloating, or vomiting. Bowels moving and passing flatus. No abd pain. Exam GI: Inspection: non-distended GI Palp: Yes Soft to palpation, No Tenderness to palpation present (GI) and No Guarding due to palpation present (GI) Percussion: Yes normal to percussion Auscultation: normal bowel sounds Objective Data Vital Signs Vital Signs: Vital Signs - 24 hr 01/07/23 10:00 01/07/23 12:00 01/07/23 12:00 Temperature 36.4 C Pulse Rate 73 86 80 Respiratory Rate 16 Blood Pressure 114/49 L Pulse Oximetry 93 Oxygen Delivery 01/07/23 12:00 01/07/23 13:05 01/07/23 13:15 Temperature Pulse Rate 81 78 Respiratory Rate 18 18 Blood Pressure Pulse Oximetry Oxygen Delivery Room Air 01/07/23 14:11 01/07/23 14:00 01/07/23 16:00 Temperature Pulse Rate 77 66 65 Respiratory Rate Blood Pressure Pulse Oximetry Oxygen Delivery 01/07/23 16:00 01/07/23 20:00 01/07/23 20:00 Temperature 36.6 C Pulse Rate 67 74 74 Respiratory Rate 16 16 Blood Pressure 99/44 L Pulse Oximetry 92 92 Oxygen Delivery Room Air 01/07/23 20:00 01/07/23 21:05 01/07/23 21:13 Temperature 36.1 C L Pulse Rate 77 76 76 Respiratory Rate 20 18 18 Blood Pressure 111/55 L Pulse Oximetry 99 Oxygen Delivery 01/07/23 21:49 01/07/23 23:14 01/08/23 02:07 Temperature Pulse Rate 74 68 74 Respiratory Rate 18 Blood Pressure Pulse Oximetry Oxygen Delivery 01/08/23 02:15 01/08/23 04:00 01/08/23 04:00 Temperature 36.7 C Pulse Rate 75 96 81 Respiratory Rate 18 20 Blood Pressure 116/72 Pulse Oximetry 99 Oxygen Delivery 01/08/23 05:38 01/08/23 08:33 01/08/23 08:33 Temperature Pulse Rate 74 80 Respiratory Rate 18 Blood Pressure Pulse Oximetry 91 Oxygen Delivery Room Air 01/08/23 08:42 01/08/23 08:00 Temperature 36.7 C Pulse Rate 82 83 Respiratory Rate 18 20 Blood Pressure 122/75 Pulse Oximetry 93 Oxygen Delivery Intake/Output Intake/Output: Intake & Output 01/05/23 01/06/23 01/07/23 01/08/23 23:59 23:59 23:59 23:59 Intake Total 3500 1700 2300 Output Total 4000 1950 1400 350 Balance -500 -250 900 -350 Meds/Results Medications: Active Medications Generic Name Dose Route Start Last Admin Trade Name Livanq PRN Reason Stop Dose Admin Albuterol 2.5 mg 01/04/23 20:00 01/08/23 08:31 Albuterol Sulfate Neb 2.5 Mg/3 Ml Inh INHALATION 2.5 mg Q6HRT JOSE A Administration Alendronate Sodium 35 mg 01/08/23 06:30 01/08/23 05:38 Alendronate Sodium 35 Mg Tablet PO 35 mg Sa@0630 JOSE A Administration Aspirin 81 mg 01/05/23 09:00 01/05/23 16:48 Aspirin 81 Mg Chewable Tablet PO Not Given DAILY JOSE A Atorvastatin Calcium 40 mg 01/05/23 09:00 01/05/23 16:48 Atorvastatin 40 Mg Tablet PO Not Given DAILY JOSE A Ciprofloxacin/Dextrose 200 mls @ 200 mls/hr 01/04/23 21:00 01/07
--- NOTE | 2023-01-08 09:35 | PM.PNCARD ---
Progress Note: A&P Assessment and Plan (1) Cardiomyopathy: Code(s): I42.9 - Cardiomyopathy, unspecified Status: Acute Assessment and Plan: When able to take p.o., will DC IV metoprolol and transition to oral metoprolol. He will also need aspirin, atorvastatin fosinopril restarted. Eventual ischemic evaluation (2) Elevated troponin: Code(s): R77.8 - Other specified abnormalities of plasma proteins Status: Acute Assessment and Plan: Eventual ischemic evaluation (3) Complete small bowel obstruction: Code(s): K56.601 - Complete intestinal obstruction, unspecified as to cause Status: Acute Assessment and Plan: NG is out (4) Atrial arrhythmia: Code(s): I49.8 - Other specified cardiac arrhythmias Status: Acute Assessment and Plan: Continue IV metoprolol (5) Left bundle branch block: Code(s): I44.7 - Left bundle-branch block, unspecified Status: Acute Subjective Date/time seen: 01/08/23 09:35 Interval history: Follow-up visit in this 72-year-old man with: Chronic left bundle branch block and a newly identified left ventricular systolic dysfunction. Patient admitted to the hospital for small bowel obstruction. Date of service 01/08/2023: Has no chest pain or shortness of breath. Did have some rib pain is going to x-ray for evaluation Review of Systems Review of Systems: All systems reviewed & are unremarkable except as noted in HPI and below Cardiovascular: Cardiovascular: Denies chest pain and Denies dyspnea Respiratory: Respiratory: Denies dyspnea Exam Narrative: awake alert Const: General: comfortable and no acute distress Other: Pleasant well-developed well-nourished white male no distress NG suction in place HENMT: Mouth: Yes moist mucous membranes Other: NG tube in place Eyes: General: appearance normal, both eyes and all related structures Sclera: sclerae normal Neck: Neck: supple and no JVD Resp: Effort & Inspection: normal respiratory effort Auscultation: clear to auscultation bilaterally Cardio: Rate: regular rate and tachycardic Rhythm: regular rhythm and abnormal rhythm with ectopic beats Other: PMI difficult to palpate, no murmur GI: Inspection: distended Skin: General skin exam: normal color Neuro: Speech: normal speech Other: Alert and oriented x3 Extrem: General: normal to inspection Other: Good perfusion, no edema Psych: Mental Status: mental status grossly normal Affect: normal affect Objective Data Vital Signs Vital Signs: Vital Signs - 24 hr 01/07/23 10:00 01/07/23 12:00 01/07/23 12:00 Temperature 36.4 C Pulse Rate 73 86 80 Respiratory Rate 16 Blood Pressure 114/49 L Pulse Oximetry 93 Oxygen Delivery 01/07/23 12:00 01/07/23 13:05 01/07/23 13:15 Temperature Pulse Rate 81 78 Respiratory Rate 18 18 Blood Pressure Pulse Oximetry Oxygen Delivery Room Air 01/07/23 14:11 01/07/23 14:00 01/07/23 16:00 Temperature Pulse Rate 77 66 65 Respiratory Rate Blood Pressure Pulse Oximetry Oxygen Delivery 01/07/23 16:00 01/07/23 20:00 01/07/23 20:00 Temperature 36.6 C Pulse Rate 67 74 74 Respiratory Rate 16 16 Blood Pressure 99/44 L Pulse Oximetry 92 92 Oxygen Delivery Room Air 01/07/23 20:00 01/07/23 21:05 01/07/23 21:13 Temperature 36.1 C L Pulse Rate 77 76 76 Respiratory Rate 20 18 18 Blood Pressure 111/55 L Pulse Oximetry 99 Oxygen Delivery 01/07/23 21:49 01/07/23 23:14 01/08/23 02:07 Temperature Pulse Rate 74 68 74 Respiratory Rate 18 Blood Pressure Pulse Oximetry Oxygen Delivery 01/08/23 02:15 01/08/23 04:00 01/08/23 04:00 Temperature 36.7 C Pulse Rate 75 96 81 Respiratory Rate 18 20 Blood Pressure 116/72 Pulse Oximetry 99 Oxygen Delivery 01/08/23 05:38 01/08/23 08:33 01/08/23 08:33 Temperature Pulse
[2023-01-08] MEDS: CIPROFLOXACIN 400 MG/D5W 200ML 200 ML 200 MG IVPB (09:41)
[2023-01-08] MEDS: PANTOPRAZOLE SODIUM IV 40 MG VIAL IV PUSH (09:43)
[2023-01-08] MEDS: LIDOCAINE 5% PATCH 1 PATCH TRANSDERM (10:00)
[2023-01-08] MEDS: metroNIDAZOLE 250 MG TABLET 500 MG PO ×2 (15:15→21:16)
--- NOTE | 2023-01-08 15:57 | PC.NURSE ---
This patient, Satnam Tovar, was transferred to [facility] on 01/08/23 at 1557. Personal belongings sent with patient. Report given to Cori CHOWDHURY. Appropriate documentation sent with patient.
--- NOTE | 2023-01-08 17:03 | ADMGEN ---
This patient, Satnam Tovar, was admitted to Medical Room 249-01. Patient/family oriented to hospital policies and general routines including ID bracelet, bed and alarms, visiting hours, pain management, procedures, bathroom and other care routines, personal items, smoking policy, room service/diet, and visiting hours. Information on how to activate the Rapid Response Team has been discussed. Patient/Family are encouraged to report perceived risks to care and to ask questions if they do not understand what they are told or what they should do.
[2023-01-08 17:44] LABS: Magnesium 2.3 mg/dL (1.6-2.3)
[2023-01-08] MEDS: CIPROFLOXACIN 500 MG TAB PO (21:16)
[2023-01-09] VITALS (15 sets, daily range): BP systolic 109–122; BP diastolic 64–68; PULSE 55–89; RESP 16–18; TEMP 36.6–36.8; O2SAT 91–95
[2023-01-09] MEDS: MORPHINE SULFATE (*CRX) 2 MG/ML INJ 1 MG IV PUSH ×2 (01:18→05:23)
[2023-01-09] MEDS: ONDANSETRON INJ 4 MG/2 ML VIAL IV PUSH ×2 (01:23→05:24)
[2023-01-09] MEDS: ALBUTEROL SULFATE NEB 2.5 MG/3 ML INH INHALATION ×3 (01:57→13:38)
--- NOTE | 2023-01-09 02:21 | PCRCNOTE ---
pt has multiple rib fractures and stated that he was in too much pain for use of cpap (pt was afraid that it would cause him to cough)
[2023-01-09 04:56] LABS: Basophils Percent Auto 0.3 % (0.2-1.2); Eosinophils Absolute Auto 0.2 K/mm3 (0-0.3); Eosinophils Percent Auto 2.4 % (0-4.4); Hematocrit 36.7 % (42.0-52.0); Immature Granulocyte Absolute 0.05 K/mm3 (0.00-0.031); Immature Granulocyte Percent A 0.6 % (0-0.5); Lymphocytes Absolute Auto 0.97 K/mm3 (0.9-3.2); Lymphocytes Percent Auto 12.5 % (18.3-44.2); Mean Corpuscular HGB Conc 32.7 g/dl (32-36); Mean Corpuscular Hemoglobin 32.1 pg (26-34); Mean Corpuscular Volume 98.1 fl (80-100); Mean Platelet Volume 9.9 fl (7.4-10.4); Monocytes Absolute Auto 0.9 K/mm3 (0.1-0.6); Monocytes Percent Auto 11.2 % (2.6-8.5); Neutrophils Absolute Auto 5.7 K/mm3 (1.3-6.7); Platelet Count Result 163 k/mm3 (150-375); Red Blood Count 3.74 M/mm3 (4.6-6.20); Red Cell Distribution Width 12.8 % (11.5-14.5); White Blood Count 7.8 K/mm3 (4.5-10.0)
[2023-01-09 05:08] LABS: Alanine Aminotransferase 38 U/L (6-50); Albumin Level 2.9 g/dL (3.5-5.1); Alkaline Phosphatase 45 U/L (38-126); Anion Gap 1 mmol/L (8-16); Aspartate Amino Transferase 39 U/L (17-59); Bilirubin,Total 0.9 mg/dL (0.2-1.3); Blood Urea Nitrogen 19 mg/dL (9-20); Calcium 7.5 mg/dL (8.4-10.2); Carbon Dioxide 31 mmol/L (22-30); Chloride 105 mmol/L (98-107); Estimated CRCL calculation 65 ml/min; Estimated Glomerular Filt Rate > 60; Glucose 94 mg/dL (65-110); Potassium 3.4 mmol/L (3.4-5.0); Sodium 137 mmol/L (137-145)
[2023-01-09] MEDS: metroNIDAZOLE 250 MG TABLET 500 MG PO (05:23)
[2023-01-09] MEDS: METOPROLOL TARTRATE INJ 5 MG/5 ML VIAL IV PUSH (05:24)
[2023-01-09] MEDS: FLUTICASONE/SALMETEROL 115-21 MCG INHALER 1 PUFF 2 PUFF INHALATION (07:34)
--- NOTE | 2023-01-09 08:04 | PM.DS ---
DS: Admitting Diagnosis Discharge Date 01/09/23 Admitting Diagnosis chest pain DS: Discharge Diagnosis Discharge Diagnosis (1) Small bowel obstruction: Code(s): K56.609 - Unspecified intestinal obstruction, unspecified as to partial versus complete obstruction Status: Acute Assessment and Plan: Appreciate general surgery consultation, improving, diet advancing Cipro/Flagyl started 01/04, end date 01/10 to complete 7 day course, will transition to oral 01/08 Zofran as needed, restart home meds 01/08: adat, still awaiting BM 01/09: +BM, ok for d/c if cont good po intake (2) ÓSCAR (acute kidney injury): Code(s): N17.9 - Acute kidney failure, unspecified Status: Acute Assessment and Plan: Likely prerenal due to dehydration from severe nausea and vomiting Continue IV fluids, monitor creatinine 01/05: cr slightly worsened with IVF, cont to monitor on IVF, suspect needs more time to affect creat, check FeNa 01/06: FeNa indicative of prerenal ÓSCAR, cont IVF, increase rate to 125 from 75 as cr bumped a bit again from 0.9 to 1.1 01/07: cr resolved with IVF, d/c IVF as diet advanced to clears today, monitor 01/08: resolved (3) Elevated troponin: Code(s): R77.8 - Other specified abnormalities of plasma proteins Status: Acute Assessment and Plan: Continue to trend, appreciate cardiology consult, echo showed an EF of 35-40% with indeterminate diastolic function, no significant valvular disease or pulmonary hypertension is noted Heparin drip d/c Venous dopplers negative for DVT Chronic LBBB Troponin peaked at 0.139, trending down now to 0.072 Ischemic workup needed after bowel obstruction resolves (4) Leucocytosis: Code(s): D72.829 - Elevated white blood cell count, unspecified Status: Acute Assessment and Plan: Unsure of etiology, could be reactive vs steroid use vs infectious etiology, down to 11 01/05 from 16 at admission 01/04 Was on prednisone as outpatient for possible pneumonia after recent rib fractures and cough developed 01/06: Resolved, cont cipro/flagyl (5) Dehydration: Code(s): E86.0 - Dehydration Status: Acute Assessment and Plan: resolved (6) Right rib fracture: Code(s): S22.31XA - Fracture of one rib, right side, initial encounter for closed fracture Status: Acute Assessment and Plan: Monitor, Lidoderm patch, Tylenol as needed S/p mechanical fall 01/05: Rib series xray showed acute fractures of ribs 8-12 on right, cont pain control 01/08: d/c morphine, start oxycodone (7) Atrial fibrillation with RVR: Code(s): I48.91 - Unspecified atrial fibrillation Status: Acute Assessment and Plan: Cardiology consult appreciated, monitor telemetry, cont heparin drip, cont scheduled metoprolol IV Maintain potassium > 4 and mag > 2 Plan DVT prophylaxis with SCDs GI prophylaxis not indicated Code status full code DS: Summary Hospital Course Hospital Course: 72-year-old male with history of asthma, hypertension presenting with nausea and vomiting, found to have SBO on admission. He was also found to have several right-sided rib fractures after a mechanical fall. He was breathing quite shallow due to the pain and was found to have possible pneumonia. 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 He noted that his symptoms did not improve. He developed nausea, vomiting and was unable to have a bowel movement or pass gas. He was admitted to our facility with a surgical consultation. NG tube was placed and he was made NPO. Cardiology was consulted for left bundle-branch block. Initial EKG was mildly abnormal. Cardiology recommended checking an echo. Echo was read as EF 35-40% with indeterminate diastolic dysfunction, no significant valvular disease nor pulmonary hypertension noted. His Norvasc was discontinued in favor of metoprolol which he miah
[2023-01-09] MEDS: CIPROFLOXACIN 500 MG TAB PO (08:12)
[2023-01-09] MEDS: hydroCHLOROthiazide 25 MG TABLET PO (08:12)
[2023-01-09] MEDS: LORATADINE 10 MG TABLET PO (08:12)
[2023-01-09] MEDS: PANTOPRAZOLE SODIUM IV 40 MG VIAL IV PUSH (08:12)
[2023-01-09] MEDS: ATORVASTATIN 40 MG TABLET PO (08:12)
[2023-01-09] MEDS: lisinopriL 20 MG TABLET 40 MG PO (08:12)
[2023-01-09] MEDS: ASPIRIN 81 MG CHEWABLE TABLET PO (08:12)
--- NOTE | 2023-01-09 08:46 | PM.PNCARD ---
Progress Note: A&P Assessment and Plan (1) Cardiomyopathy: Code(s): I42.9 - Cardiomyopathy, unspecified Status: Acute Assessment and Plan: Taking oral medications at this point. Discontinue IV metoprolol. Start metoprolol succinate 50 mg p.o. daily. Continue aspirin, atorvastatin fosinopril restarted. Eventual ischemic evaluation preferably by angiogram (2) Elevated troponin: Code(s): R77.8 - Other specified abnormalities of plasma proteins Status: Acute Assessment and Plan: Eventual ischemic evaluation (3) Complete small bowel obstruction: Code(s): K56.601 - Complete intestinal obstruction, unspecified as to cause Status: Acute Assessment and Plan: Taking p.o. (4) Atrial arrhythmia: Code(s): I49.8 - Other specified cardiac arrhythmias Status: Acute Assessment and Plan: Transitioning to oral metoprolol (5) Left bundle branch block: Code(s): I44.7 - Left bundle-branch block, unspecified Status: Acute Subjective Date/time seen: 01/09/23 08:46 Interval history: Follow-up visit in this 72-year-old man with: Chronic left bundle branch block and a newly identified left ventricular systolic dysfunction. Patient admitted to the hospital for small bowel obstruction. Date of service 01/08/2023: Has no chest pain or shortness of breath. Did have some rib pain is going to x-ray for evaluation Date of service 01/09/2023: Taking p.o.. No chest pain or shortness of breath. Little nauseated at times and requesting Zofran Review of Systems Review of Systems: All systems reviewed & are unremarkable except as noted in HPI and below Cardiovascular: Cardiovascular: Denies chest pain and Denies dyspnea Respiratory: Respiratory: Denies dyspnea Gastrointestinal: Comments: Nauseated Exam Narrative: awake alert Const: General: comfortable and no acute distress Other: Pleasant well-developed well-nourished white male no distress NG suction in place HENMT: Mouth: Yes moist mucous membranes Other: NG tube in place Eyes: General: appearance normal, both eyes and all related structures Sclera: sclerae normal Neck: Neck: supple and no JVD Resp: Effort & Inspection: normal respiratory effort Auscultation: clear to auscultation bilaterally Cardio: Rate: regular rate and tachycardic Rhythm: regular rhythm and abnormal rhythm with ectopic beats Other: PMI difficult to palpate, no murmur GI: Inspection: non-distended Skin: General skin exam: normal color Neuro: Speech: normal speech Other: Alert and oriented x3 Extrem: General: normal to inspection Other: Good perfusion, no edema Psych: Mental Status: mental status grossly normal Affect: normal affect Objective Data Vital Signs Vital Signs: Vital Signs - 24 hr 01/08/23 15:15 01/08/23 15:25 01/08/23 15:33 Temperature Pulse Rate 82 67 69 Respiratory Rate 18 18 Blood Pressure Pulse Oximetry Oxygen Delivery 01/08/23 12:00 01/08/23 18:50 01/08/23 20:01 Temperature Pulse Rate 84 70 Respiratory Rate 16 Blood Pressure 123/76 Pulse Oximetry 93 Oxygen Delivery Room Air 01/08/23 20:14 01/08/23 21:16 01/08/23 20:00 Temperature 36.7 C Pulse Rate 90 83 75 Respiratory Rate 16 Blood Pressure 115/57 L Pulse Oximetry 93 Oxygen Delivery 01/08/23 20:00 01/09/23 00:00 01/09/23 01:58 Temperature Pulse Rate 78 82 Respiratory Rate 18 Blood Pressure Pulse Oximetry Oxygen Delivery Room Air 01/08/23 20:00 01/08/23 21:12 01/09/23 02:08 Temperature Pulse Rate 90 94 84 Respiratory Rate 18 18 18 Blood Pressure Pulse Oximetry Oxygen Delivery 01/09/23 04:00 01/09/23 05:24 01/09/23 06:00 Temperature 36.6 C Pulse Rate 72 84 61 Respiratory Rate 18 Blood Pressure 122/64 Pulse Oximetry 95 Oxygen Delivery 01/09/23 07:35 01/09/23 07
--- NOTE | 2023-01-09 09:01 | PM.PNGS ---
Progress Note: A&P Assessment and Plan (1) Small bowel obstruction: Code(s): K56.609 - Unspecified intestinal obstruction, unspecified as to partial versus complete obstruction Status: Acute Assessment and Plan: OK to discharge this afternoon if tolerating breakfast and lunch without bloating/nausea. Will start MiraLax this AM. Recommend continuing while on pain meds for broken ribs. (2) Pneumonia: Code(s): J18.9 - Pneumonia, unspecified organism Status: Acute (3) Elevated troponin: Code(s): R77.8 - Other specified abnormalities of plasma proteins Status: Acute (4) ÓSCAR (acute kidney injury): Code(s): N17.9 - Acute kidney failure, unspecified Status: Acute (5) Status post fall: Code(s): Z91.81 - History of falling Status: Acute Subjective Subjective Date/Time Seen: 01/09/23 09:01 Interval history: Tolerating diet so far. Breakfast was the first solid food he has had. No bloating or nausea. Passing flatus. No BM yet today. Exam GI: Inspection: non-distended GI Palp: Yes Soft to palpation, No Tenderness to palpation present (GI) and No Guarding due to palpation present (GI) Percussion: Yes normal to percussion Auscultation: normal bowel sounds Objective Data Vital Signs Vital Signs: Vital Signs - 24 hr 01/08/23 15:15 01/08/23 15:25 01/08/23 15:33 Temperature Pulse Rate 82 67 69 Respiratory Rate 18 18 Blood Pressure Pulse Oximetry Oxygen Delivery 01/08/23 12:00 01/08/23 18:50 01/08/23 20:01 Temperature Pulse Rate 84 70 Respiratory Rate 16 Blood Pressure 123/76 Pulse Oximetry 93 Oxygen Delivery Room Air 01/08/23 20:14 01/08/23 21:16 01/08/23 20:00 Temperature 36.7 C Pulse Rate 90 83 75 Respiratory Rate 16 Blood Pressure 115/57 L Pulse Oximetry 93 Oxygen Delivery 01/08/23 20:00 01/09/23 00:00 01/09/23 01:58 Temperature Pulse Rate 78 82 Respiratory Rate 18 Blood Pressure Pulse Oximetry Oxygen Delivery Room Air 01/08/23 20:00 01/08/23 21:12 01/09/23 02:08 Temperature Pulse Rate 90 94 84 Respiratory Rate 18 18 18 Blood Pressure Pulse Oximetry Oxygen Delivery 01/09/23 04:00 01/09/23 05:24 01/09/23 06:00 Temperature 36.6 C Pulse Rate 72 84 61 Respiratory Rate 18 Blood Pressure 122/64 Pulse Oximetry 95 Oxygen Delivery 01/09/23 07:35 01/09/23 07:36 01/09/23 07:43 Temperature Pulse Rate 89 72 Respiratory Rate 18 18 Blood Pressure Pulse Oximetry 91 Oxygen Delivery Room Air Intake/Output Intake/Output: Intake & Output 01/06/23 01/07/23 01/08/23 01/09/23 23:59 23:59 23:59 23:59 Intake Total 1700 2300 630 Output Total 1950 1400 450 700 Balance -250 900 180 -700 Meds/Results Medications: Active Medications Generic Name Dose Route Start Last Admin Trade Name Livanq PRN Reason Stop Dose Admin Albuterol 2.5 mg 01/04/23 20:00 01/09/23 07:34 Albuterol Sulfate Neb 2.5 Mg/3 Ml Inh INHALATION 2.5 mg Q6HRT JOSE A Administration Alendronate Sodium 35 mg 01/08/23 06:30 01/08/23 05:38 Alendronate Sodium 35 Mg Tablet PO 35 mg Sa@0630 JOSE A Administration Aspirin 81 mg 01/05/23 09:00 01/09/23 08:12 Aspirin 81 Mg Chewable Tablet PO 81 mg DAILY JOSE A Administration Atorvastatin Calcium 40 mg 01/05/23 09:00 01/09/23 08:12 Atorvastatin 40 Mg Tablet PO 40 mg DAILY JOSE A Administration Ciprofloxacin 500 mg 01/08/23 21:00 01/09/23 08:12 Ciprofloxacin 500 Mg Tab PO 01/10/23 22:00 500 mg Q12HR JOSE A Administration Hydrochlorothiazide 25 mg 01/09/23 09:00 01/09/23 08:12 Hydrochlorothiazide 25 Mg Tablet PO 25 mg DAILY JOSE A Administration Lidocaine 1 patch 01/04/23 15:15 01/08/23 10:00 Lidocaine 5% Patch TRANSDERM 1 patch DAILY JOSE A Administration Lisinopril 40 mg 01/09/23 09:00 01/09/23 08:12 Lisinopril 20 Mg Tablet PO 40 mg QAM [facility]
[2023-01-09] MEDS: METOPROLOL SUCCINATE EXT REL 50 MG TABCR PO (11:00)
[2023-01-09] MEDS: polyethylene glycoL 3350 17 GM POWD.PACK PO (11:00)
[2023-01-09] MEDS: LIDOCAINE 5% PATCH 1 PATCH TRANSDERM (11:09)
--- NOTE | 2023-01-09 11:21 | PM.IMPN ---
Progress Note: A&P Assessment and Plan (1) Small bowel obstruction: Code(s): K56.609 - Unspecified intestinal obstruction, unspecified as to partial versus complete obstruction Status: Acute Assessment and Plan: Appreciate general surgery consultation, improving, diet advancing Cipro/Flagyl started 01/04, end date 01/10 to complete 7 day course, will transition to oral 01/08 Zofran as needed, restart home meds 01/08: adat, still awaiting BM (2) ÓSCAR (acute kidney injury): Code(s): N17.9 - Acute kidney failure, unspecified Status: Acute Assessment and Plan: Likely prerenal due to dehydration from severe nausea and vomiting Continue IV fluids, monitor creatinine 01/05: cr slightly worsened with IVF, cont to monitor on IVF, suspect needs more time to affect creat, check FeNa 01/06: FeNa indicative of prerenal ÓSCAR, cont IVF, increase rate to 125 from 75 as cr bumped a bit again from 0.9 to 1.1 01/07: cr resolved with IVF, d/c IVF as diet advanced to clears today, monitor 01/08: resolved (3) Elevated troponin: Code(s): R77.8 - Other specified abnormalities of plasma proteins Status: Acute Assessment and Plan: Continue to trend, appreciate cardiology consult, echo showed an EF of 35-40% with indeterminate diastolic function, no significant valvular disease or pulmonary hypertension is noted Heparin drip d/c Venous dopplers negative for DVT Chronic LBBB Troponin peaked at 0.139, trending down now to 0.072 Ischemic workup needed after bowel obstruction resolves (4) Leucocytosis: Code(s): D72.829 - Elevated white blood cell count, unspecified Status: Acute Assessment and Plan: Unsure of etiology, could be reactive vs steroid use vs infectious etiology, down to 11 01/05 from 16 at admission 01/04 Was on prednisone as outpatient for possible pneumonia after recent rib fractures and cough developed 01/06: Resolved, cont cipro/flagyl (5) Dehydration: Code(s): E86.0 - Dehydration Status: Acute Assessment and Plan: resolved (6) Right rib fracture: Code(s): S22.31XA - Fracture of one rib, right side, initial encounter for closed fracture Status: Acute Assessment and Plan: Monitor, Lidoderm patch, Tylenol as needed S/p mechanical fall 01/05: Rib series xray showed acute fractures of ribs 8-12 on right, cont pain control 01/08: d/c morphine, start oxycodone (7) Atrial fibrillation with RVR: Code(s): I48.91 - Unspecified atrial fibrillation Status: Acute Assessment and Plan: Cardiology consult appreciated, monitor telemetry, cont heparin drip, cont scheduled metoprolol IV Maintain potassium > 4 and mag > 2 Plan DVT prophylaxis with heparin drip GI prophylaxis not indicated Code status full code Subjective Date/time seen: 01/09/23 11:21 Interval history: 72-year-old male with history of asthma, hypertension presenting with nausea and vomiting, found to have SBO on admission. No overnight events noted. No chest pain or shortness of breath. No nausea, vomiting or diarrhea. No fevers or chills. +BM, + flatus, feels much better, good po intake Review of Systems Review of Systems: 12 point review of systems was assessed and was negative except as noted in the HPI Exam Narrative: General: No acute distress, alert and oriented per baseline HEENT: Atraumatic, normocephalic, mucous membranes moist CV: Regular rate and rhythm, S1, S2 Lungs: Clear to auscultation bilaterally, no rales or crackles noted, no wheezes, good air entry Abdomen: Soft, nontender, nondistended, hypoactive BS Extremities: Normal to inspection Skin: No rashes noted, no lesions or wounds seen Objective Data Vital Signs Vital Signs: Vital Signs - 24 hr 01/08/23 15:15 01/08/23 15:25 01/08/23 15:33 Temperature Pulse Rate 82 67 69 Respiratory Rate 18 18 Blood Pressu
[2023-01-09] MEDS: oxyCODONE HCL (*CRX) 5 MG TAB IR PO (12:50)
[2023-01-09] MEDS: BENZONATATE 100 MG CAPSULE 200 MG PO (12:51)
== END 2023-01-09 15:50 | disposition home or self-care (01) | DRG 388 ==
LOC: ANHED 09:57 → ANHIMU 12:46 → ANH2MED 01-08 15:38
PROVIDERS: Internal Medicine; Internal Medicine Cardiovascular Disease; Admitting Provider Internal Medicine; Emergency Provider Emergency Medicine; Visit Provider Student in an Organized Health Care Education/Training Program
DX: K56.609 Unspecified intestinal obstruction, unspecified as to partial versus complete obstruction (principal); J18.9 Pneumonia, unspecified organism; S22.41XA Multiple fractures of ribs, right side, initial encounter for closed fracture; N17.9 Acute kidney failure, unspecified; I42.9 Cardiomyopathy, unspecified; Z20.822 Contact with and (suspected) exposure to COVID-19; W19.XXXA Unspecified fall, initial encounter; E78.5 Hyperlipidemia, unspecified; I10 Essential (primary) hypertension; E86.0 Dehydration; D72.829 Elevated white blood cell count, unspecified; I48.91 Unspecified atrial fibrillation; I49.8 Other specified cardiac arrhythmias; R77.8 Other specified abnormalities of plasma proteins; I44.7 Left bundle-branch block, unspecified; Z90.49 Acquired absence of other specified parts of digestive tract; Z91.81 History of falling
CPT/HCPCS: 36415; 71045; 71100; 74018; 74019; 74176; 74250; 80048; 80053; 82570; 83735; 84300; 84484; 85025; 85610; 85730; 87040; 87637; 93005; 93970; 94640; 96361; 96374; 97165; 99285; A9270; C8929; C9113; J0744; J1644; J2060; J2270; J2405; J3480; J7030; J7040; Q9957

== ENCOUNTER 2023-04-05 04:10 | Day surgery (SDC) | payer MEDICARE, OTHER, SELFPAY ==
[2023-04-05] VITALS (10 sets, daily range): BP systolic 98–121; BP diastolic 55–75; PULSE 60–79; RESP 14–20; TEMP 36.7–37.1; O2SAT 94–97; BMI 26.9
[2023-04-05 08:45] LABS: Basophils Percent Auto 0.2 % (0.2-1.2); Hematocrit 46.9 % (42.0-52.0); Hemoglobin 15.9 g/dL (14.0-18.0); Immature Granulocyte Absolute 0.03 K/mm3 (0.00-0.031); Immature Granulocyte Percent A 0.5 % (0-0.5); Lymphocytes Absolute Auto 0.52 K/mm3 (0.9-3.2); Lymphocytes Percent Auto 8.5 % (18.3-44.2); Mean Corpuscular HGB Conc 33.9 g/dl (32-36); Mean Corpuscular Hemoglobin 33.3 pg (26-34); Mean Corpuscular Volume 98.1 fl (80-100); Mean Platelet Volume 9.9 fl (7.4-10.4); Monocytes Absolute Auto 0.1 K/mm3 (0.1-0.6); Neutrophils Absolute Auto 5.5 K/mm3 (1.3-6.7); Neutrophils Percent Auto 89.8 % (45.5-73.1); Platelet Count Result 183 k/mm3 (150-375); Red Blood Count 4.78 M/mm3 (4.6-6.20); White Blood Count 6.1 K/mm3 (4.5-10.0)
[2023-04-05 08:54] LABS: Anion Gap 10 mmol/L (8-16); Blood Urea Nitrogen 22 mg/dL (9-20); Calcium 9.2 mg/dL (8.4-10.2); Carbon Dioxide 21 mmol/L (22-30); Chloride 105 mmol/L (98-107); Estimated Glomerular Filt Rate > 60; Glucose 158 mg/dL (65-110); Sodium 136 mmol/L (137-145)
[2023-04-05 08:57] LABS: Prothrombin Time 13.1 Seconds (11.1-14.7)
--- NOTE | 2023-04-05 09:46 | PM.IMHP ---
H&P: HPI History of Present Illness Date/Time: 04/05/23 09:46 Chief Complaint: HFrEF, abnormal stress test Narrative: Mr. Tovar is a 72-year-old male with heart failure with reduced ejection fraction and abnormal stress test who is referred for cardiac catheterization for ischemic evaluation. Patient denies chest pain, shortness of breath, lower extremity edema, orthopnea. Review of Systems Review of Systems: All systems reviewed & are unremarkable except as noted in HPI and below (HPI) [facility] Past Medical History Medical History Atrial arrhythmia Dyslipidemia Hypertension Surgical History Surgical History History of appendectomy History of inguinal hernia repair Social History Social History Smoking status: Never smoker Alcohol intake: current Substance use: never Lack of Transportation: No Lack of Food: Never True Current Housing: I Have Housing Concerned About Future Housing: No Difficulty Paying Gas/Electric Bills: No Difficulty Paying for Meds: No Currently Unemployed: No Education: Bachelor's Degree Difficulty w/ Childcare or Family Care: No Spiritual care concerns: No Meds Home Medications and Allergies Home Medications Medication Instructions Recorded Confirmed Type alendronate 35 mg tablet 35 mg PO WEEKLY 01/04/23 04/05/23 History aspirin 81 mg chewable tablet 81 mg PO DAILY 01/04/23 04/05/23 History atorvastatin 40 mg tablet 40 mg PO DAILY 01/04/23 04/05/23 History cetirizine 10 mg tablet (Zyrtec) 10 mg PO DAILY 01/04/23 04/05/23 History fluticasone 250 mcg-salmeterol 50 1 inh inhalation DAILY 01/04/23 04/05/23 History mcg/dose blistr powdr for inhalation (Advair Diskus) fosinopril 40 mg tablet 40 mg PO DAILY 01/04/23 04/05/23 History hydrochlorothiazide 25 mg tablet 25 mg PO DAILY 01/04/23 04/05/23 History metoprolol succinate 50 mg 50 mg PO QAM 1 month #30 tabs 01/09/23 04/05/23 Rx tablet,extended release 24 hr solifenacin 5 mg tablet 5 mg PO DAILY 04/05/23 04/05/23 History Allergies Allergy/AdvReac Type Severity Reaction Status Date / Time Iodinated Contrast Media Allergy Anaphylactic Verified 04/05/23 08:33 Shock Vital Signs Vital Signs - 24 hr 04/05/23 08:50 Temperature 37.1 C Pulse Rate 79 Respiratory Rate 16 Blood Pressure 121/75 Pulse Oximetry 94 Oxygen Delivery Room Air Exam Const: General: comfortable and no acute distress HENMT: Mouth: Yes moist mucous membranes Eyes: General: appearance normal, both eyes and all related structures Sclera: sclerae normal Neck: Neck: supple Resp: Effort & Inspection: normal respiratory effort Auscultation: clear to auscultation bilaterally Cardio: Rate: regular rate Rhythm: regular rhythm Heart sounds: no murmurs Skin: General skin exam: normal color Neuro: Speech: normal speech Psych: Mental Status: mental status grossly normal Affect: normal affect H&P: Results Labs Labs: Short CBC 04/05/23 Range/Units 08:31 WBC 6.1 (4.5-10.0) K/mm3 Hgb 15.9 D (14.0-18.0) g/dL Hct 46.9 (42.0-52.0) % Plt Count 183 (150-375) k/mm3 BMP 04/05/23 08:31 Sodium 136 L Potassium 4.0 Chloride 105 Carbon Dioxide 21 L BUN 22 H Creatinine 0.80 Glucose 158 H Calcium 9.2 Assessment and Plan Assessment and plan (1) Cardiomyopathy: Code(s): I42.9 - Cardiomyopathy, unspecified Status: Acute (2) Left bundle branch block: Code(s): I44.7 - Left bundle-branch block, unspecified Status: Acute (3) Abnormal stress test: Code(s): R94.39 - Abnormal result of other cardiovascular function study Status: Acute Plan Proceed with cardiac catheterization.
--- NOTE | 2023-04-05 09:50 | WPDMODSED ---
Moderate Sedation Note-Pt Data Patient Data Diagnosis: Heart failure with reduced ejection fraction, abnormal stress test Present Complaint: Heart failure with reduced ejection fraction, abnormal stress test Procedure to be performed/Plan: Coronary angiography, left heart cath, +/- PCI Allergies Allergy/AdvReac Type Severity Reaction Status Date / Time Iodinated Contrast Media Allergy Anaphylactic Verified 04/05/23 08:33 Shock Home Medications Medication Instructions Recorded Confirmed Type alendronate 35 mg tablet 35 mg PO WEEKLY 01/04/23 04/05/23 History aspirin 81 mg chewable tablet 81 mg PO DAILY 01/04/23 04/05/23 History atorvastatin 40 mg tablet 40 mg PO DAILY 01/04/23 04/05/23 History cetirizine 10 mg tablet (Zyrtec) 10 mg PO DAILY 01/04/23 04/05/23 History fluticasone 250 mcg-salmeterol 50 1 inh inhalation DAILY 01/04/23 04/05/23 History mcg/dose blistr powdr for inhalation (Advair Diskus) fosinopril 40 mg tablet 40 mg PO DAILY 01/04/23 04/05/23 History hydrochlorothiazide 25 mg tablet 25 mg PO DAILY 01/04/23 04/05/23 History metoprolol succinate 50 mg 50 mg PO QAM 1 month #30 tabs 01/09/23 04/05/23 Rx tablet,extended release 24 hr solifenacin 5 mg tablet 5 mg PO DAILY 04/05/23 04/05/23 History Current Medications: Active Medications Sodium Chloride (Normal Saline Iv) 500 mls @ 100 mls/hr IV CONT .Q5H JOSE A Sedation/Anesthesia: No previous sedation/anesthesia problems (including family history). [facility] Past Medical History Medical History Atrial arrhythmia Dyslipidemia Hypertension Surgical History Surgical History History of appendectomy History of inguinal hernia repair Social History Social History Smoking status: Never smoker Alcohol intake: current Substance use: never Lack of Transportation: No Lack of Food: Never True Current Housing: I Have Housing Concerned About Future Housing: No Difficulty Paying Gas/Electric Bills: No Difficulty Paying for Meds: No Currently Unemployed: No Education: Bachelor's Degree Difficulty w/ Childcare or Family Care: No Spiritual care concerns: No Mod Sed Physical Exam Physical Exam Pre Procedural Exam: Normal: Appearance, Lungs, Heart Rate, Heart Rhythm, Neuro Exam, Abdomen, Extremities and Skin Hours since solid foods: 12 Hours since liquid intake: 8 Mallampati Classification: class III Internal Medicine - PN: Obj Da Vital Signs Vital Signs: Vital Signs - 24 hr 04/05/23 08:50 Temperature 37.1 C Pulse Rate 79 Respiratory Rate 16 Blood Pressure 121/75 Pulse Oximetry 94 Oxygen Delivery Room Air Meds/Results Medications: Active Medications Generic Name Dose Route Start Last Admin Trade Name Freq PRN Reason Stop Dose Admin Sodium Chloride 500 mls @ 100 mls/hr 04/05/23 08:30 Normal Saline Iv IV CONT .Q5H JOSE A Labs 04/05/23 08:31 04/05/23 08:31 Labs: Laboratory Results - last 24 hr 04/05/23 08:31 WBC 6.1 RBC 4.78 Hgb 15.9 D Hct 46.9 MCV 98.1 MCH 33.3 MCHC 33.9 RDW 13.0 Plt Count 183 MPV 9.9 Immature Gran % (Auto) 0.5 Neut % (Auto) 89.8 H Lymph % (Auto) 8.5 L Cass % (Auto) 1.0 L Eos % (Auto) 0.0 Baso % (Auto) 0.2 Lymph # (Auto) 0.52 L Cass # (Auto) 0.1 Eos # (Auto) 0.0 Baso # (Auto) 0.0 Abs Immat Gran (auto) 0.03 Absolute Neuts (auto) 5.5 Absolute Nucleated RBC 0.0 Nucleated RBC % 0.0 PT 13.1 INR 1.0 Sodium 136 L Potassium 4.0 Chloride 105 Carbon Dioxide 21 L Anion Gap 10 BUN 22 H Creatinine 0.80 Estim Creat Clear Calc Not Reportable Estimated GFR > 60 Glucose 158 H Calcium 9.2 ASA Classification/Sedation ASA Classification/Sedation ASA Class: III Emergent: No Risks: Risks, benefits and alternatives explained and mikal
--- NOTE | 2023-04-05 10:37 | WPDCARDPROC ---
Cardiac Cath Procedure Note Date of procedure:: 04/05/23 Performing physician:: CATHETERIZATION LABORATORY REPORT Procedure Date: 04/05/2023 Brake Lining Curer: Magdy Min M.D., [facility]? Referring Physician: Magdy Min M.D. ? Anesthesia: Versed and Fentanyl were ordered and given in my presence at 09:54, procedure ended at 10:30. Supervision of nurse monitored moderate sedation with Versed and Fentanyl was provided for 36 minutes. Total of Versed 2.5mg and Fentanyl 100mcg were administered by the Cruller Maker Machine RN Malka Napier. Pre-op Diagnosis: Coronary artery disease, heart failure with reduced ejection fraction, abnormal stress test Post-op Diagnosis: 1. Non-obstructive coronary artery disease 2. Elevated left ventricular end-diastolic pressure of 31mmHg Procedure(s): 1. Moderate sedation 2. Ultrasound-guided access of the right radial artery 3. Ultrasound-guided access of the right common femoral artery 4. Coronary angiography 5. Left heart cath 6. Angioseal closure of the right common femoral artery Access Site: Right radial artery Right common femoral artery Brief History and Clinical Indications: Patient is a 72 year old male who is referred for cardiac catheterization for ischemic evaluation for heart failure with reduced ejection fraction and abnormal stress test. All risks, benefits and alternatives to left heart catheterization with or without percutaneous coronary intervention was discussed at length with the patient. Risk of complications including but not limited to bleeding, infection, arrhythmia, stroke, worsening kidney function, blood loss, groin hematoma, limb loss, emergency coronary artery bypass grafting, and even were discussed with the patient and all questions were answered. The patient understood and wished to proceed. Time out called, patient name, date of , medical record number, allergies, procedure performed, identify Brake Lining Curer, patient and staff member concurred with accurate data, procedure carried on. Findings: LEFT HEART CATHETERIZATION FINDINGS: 1. Left main: Large caliber vessel. The left main coronary artery is widely patent without any significant obstructive disease. 2. Left anterior descending: Large caliber vessel. The LAD and the diagonal branches have mild diffuse disease without any significant obstructive angiographic disease. 3. Left circumflex: Large caliber vessel. The left circumflex artery and the main marginal branches have mild diffuse disease without any significant obstructive angiographic disease. 4. Right coronary artery: Large caliber vessel. The RCA has mild diffuse disease without any significant obstructive angiographic disease. The RCA is the dominant vessel. 5. Left ventricle: A. End-diastolic pressure 31 mmHg. B. LV gram deferred. C. No significant gradient across aortic valve on catheter pullback. Description of Procedure: Informed consent signed and placed in the chart. Patient transferred to lab assistant room. Prepped and draped in usual sterile fashion. 2% lidocaine injected subcutaneously in right wrist area. 22-gauge venipuncture catheter used to access the right radial artery under ultrasound guidance. 6-FR slender sheath placed in right radial artery. Nitroglycerine and Verapamil were given intraarterial through the sheath. Versacore wire advanced under fluoroscopy. Unable to advance the Versacore wire past the subclavian artery and into aorta despite multiple attempts. Therefore, femoral access pursued. 2% lidocaine in right groin area. Micropuncture needle used to access right common femoral artery with Seldinger technique under ultrasound guidance. J wire advanced, micropuncture cannula placed. Right iliofemoral angiogram performed, access confirmed and micropuncture cannula exchanged for 5-FR sheath. 5F FL 4 diagnostic catheter engaged Left Main Coronary Artery. 5F FR 4 diagnostic catheter engaged Right Coronary Artery. Multiple or
== END 2023-04-05 14:50 | disposition home or self-care (01) ==
PROVIDERS: Visit Provider Internal Medicine
PROC: 4A023N7 Measurement of Cardiac Sampling and Pressure, Left Heart, Percutaneous Approach (ICD-10-PCS; CPT 93452; principal; 2023-04-05 10:00)
PROC: (CPT 36140; 2023-04-05 10:00)
DX: I25.10 Atherosclerotic heart disease of native coronary artery without angina pectoris (principal); R94.39 Abnormal result of other cardiovascular function study; I11.0 Hypertensive heart disease with heart failure; I50.9 Heart failure, unspecified; I44.7 Left bundle-branch block, unspecified; I42.9 Cardiomyopathy, unspecified; E78.5 Hyperlipidemia, unspecified; Z79.82 Long term (current) use of aspirin
CPT/HCPCS: 36140; 36415; 80048; 85025; 85610; 93458; A9270; C1760; C1769; C1887; C1894; G0269; J1644; J2250; J2305; J3010; J7040

== ENCOUNTER → 2023-05-26 07:38 | Outpatient (CLI) | payer MEDICARE, OTHER, SELFPAY ==
--- NOTE | ~2023-05-26 | US_ITS ---
Limited Abdominal Sonogram: Real-time sonographic imaging of the right upper quadrant was performed. Clinical History: Abnormal LFTs Findings: The liver appears normal with no evidence of mass lesion or bile duct dilatation. Main por lydia vein demonstrates normal direction of flow. The gallbladder is relatively contracted, probable sm all gallbladder wall polyp. No mobile gallstone evident. No definite gallbladder wall thickening othe rwise. The common bile duct measures 4 mm. The visualized pancreas, aorta, and IVC are unremarkable. Right kidney measures 10.67 m in length, without evidence for hydronephrosis. Impression: Suspected small gallbladder wall polyp. Reviewed, dictated and finalized at location M. Impression: Suspected small gallbladder wall polyp.
== END ==
DX: R94.5 Abnormal results of liver function studies (principal)
CPT/HCPCS: 76705

== ENCOUNTER 2023-12-01 14:22 | Outpatient (CLI) | payer MEDICARE, OTHER, SELFPAY ==
[2023-12-01 15:14] LABS: Alanine Aminotransferase 25 U/L (6-50); Albumin Level 4.8 g/dL (3.5-5.1); Alkaline Phosphatase 41 U/L (38-126); Anion Gap 6 mmol/L (4-12); Aspartate Amino Transferase 26 U/L (17-59); Blood Urea Nitrogen 23 mg/dL (9-20); Calcium 9.7 mg/dL (8.4-10.2); Carbon Dioxide 27 mmol/L (22-30); Chloride 103 mmol/L (98-107); Estimated Glomerular Filt Rate > 60; Glucose 94 mg/dL (65-110); Sodium 136 mmol/L (137-145)
[2023-12-01 15:17] LABS: Potassium 3.9 mmol/L (3.4-5.0)
== END 2023-12-01 14:23 | disposition home or self-care (01) ==
LOC: ANHLAB 14:26
PROVIDERS: Visit Provider Internal Medicine
DX: I42.8 Other cardiomyopathies (principal); I44.7 Left bundle-branch block, unspecified; I50.20 Unspecified systolic (congestive) heart failure
CPT/HCPCS: 36415; 80053

== ENCOUNTER 2024-06-19 09:16 | Outpatient (CLI) | payer MEDICARE, OTHER, SELFPAY ==
--- NOTE | ~2024-06-19 | CT_ITS ---
EXAMINATION: CT cervical spine wo con DATE: 06/19/2024 09:34 INDICATION: Cervical radiculitis. TECHNIQUE: Computed tomography (CT) of the cervical spine was performed without intravenous contrast. Automated exposure control and iterative reconstruction technique were employed. The dose-length pro duct was 227.65 mGy-cm. COMPARISON: None FINDINGS: There is 8 degrees levocurvature of cervical spine. Vertebral body heights are normal. Ther e is mildly decreased disc height at C4-C5, moderately decreased disc height at C5-C6, and severely d ecreased disc height at C6-C7. The following disc levels are specifically discussed: C2-C3: There is mild right uncovertebral joint osteoarthritis. There is severe right and mild left fa cet joint osteoarthritis. There is no neural foraminal stenosis. There is no central canal stenosis. C3-C4: There is moderate right and mild left uncovertebral joint osteoarthritis. There is severe righ t and mild left facet joint osteoarthritis. There is moderate right and mild left neural foraminal st enosis. There is mild central canal stenosis. C4-C5: There is mild bilateral uncovertebral joint osteoarthritis. There is moderate right and mild l eft facet joint osteoarthritis. There is mild bilateral neural foraminal stenosis. There is mild cent ral canal stenosis. C5-C6: There is severe right and moderate left uncovertebral joint osteoarthritis. There is moderate right and mild left facet joint osteoarthritis. There is mild bilateral neural foraminal stenosis. Th ere is mild central canal stenosis. C6-C7: There is severe bilateral uncovertebral joint osteoarthritis. There is moderate bilateral face t joint osteoarthritis. There is mild bilateral neural foraminal stenosis. There is mild central yuliana l stenosis. C7-T1: There is no uncovertebral joint osteoarthritis. There is mild bilateral facet joint osteoarthr itis. There is no neural foraminal stenosis. There is no central canal stenosis. IMPRESSION: 1. Severe cervical spondylosis. Reviewed, dictated and finalized at location B.
== END 2024-06-19 09:17 | disposition home or self-care (01) ==
LOC: MICIMG 09:18
DX: M47.22 Other spondylosis with radiculopathy, cervical region (principal); M48.02 Spinal stenosis, cervical region
CPT/HCPCS: 72125

== ENCOUNTER 2025-04-03 13:45 | Outpatient (CLI) | payer MEDICARE, OTHER, SELFPAY ==
--- NOTE | ~2025-04-03 | XR_ITS ---
XR chest 2V 04/03/2025 14:04 Indication: Chronic asthma Procedure: 2 views chest Comparison: 01/09/2023 Findings: Elevated left diaphragm with gastric distention. No focal air space disease, pulmonary tiera a, pleural effusion or suspected pneumothorax. Pacemaker leads in expected position. Impression: 1: No acute cardiopulmonary disease. Reviewed, dictated and finalized at location A. Impression: 1: No acute cardiopulmonary disease.
--- OUTSIDE RECORDS SUMMARY | 2025-04-03 13:56 | XMS_ITS | Continuity of Care Document ---
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 Medication Details Route Status Patient Instructions Prescription Expires Prescription Number Last Dispense Date Ordering Provider Order Date Order Qty Source PREDNISONE (prednisone ), 50 MG, TABLET, ORAL, A[employer]OB[employer]ARM, 100 ea. BOTTLE Active [id number] 2023 3 Pharmac y Data Transac tion Service Facilit y Immunizations Combined list of available immunizations from the Department of Defense and [facility] facilities. Immunization Series Date Given Administered By Site Reaction Lot Number CVX Code Drug Press Assistant And Feeder Status Comments Source COVID-19, mRNA, LNP-S, PF, 30 mcg/0.3 mL dose 2020 ALLYSSA, [employer] (PFR) Not Given COVID-19, mRNA, LNP-S, PF, 30 mcg/0.3 mL dose DoD Influenza vaccine, quadrivalent, adjuvanted 2020 ALLYSSA, () Not Given Influenza vaccine, quadrival ent, adjuvante d DoD influenza, high-dose, quadrivalent 2019 ALUL, () Not Given influenza , high-dose , quadrival ent DoD Influenza, high dose seasonal 2018 ALUL, () Not Given Influenza , high dose seasonal DoD zoster recombinant 2018 JASS, () Not Given zoster recombina nt DoD zoster recombinant 2018 JASS, () Not Given zoster recombina nt DoD zoster recombinant 2017 JASS, () Not Given zoster recombina nt DoD Encounters Combined list of: 1) Encounters from Department of Veterans Affairs facilities going backup to the last 18 months, not all [facility] inpatient encounters are included; 2) Encounters from the Department of Defense facilities going backup to 280 months. Location Location Details Encounter Type Encounter Number Reason For Visit Attending Provider ADM Date DC Date Status Disposition Source [facility] Outpatient Encounter [id number] 07[facility]03 [facility] Social History Combined list of available smoking, tobacco, and other social history from Department of Defense and Veterans Affairs facilities. Social History Type Response Date Comment [facility] e This section is an empty social history section. [facility]D
--- OUTSIDE RECORDS SUMMARY | 2025-04-03 13:56 | XMS_ITS | Clinical Summary ---
Author Organization [facility] [employer] Address [address] [place] [address] Care Team Providers Care Suggestion Clerk Name Role Phone Beck Quiroz MD Unavailable [phone] Mihir Reyes MD Unavailable [phone] Source Comments [facility] [employer]non-owned Affiliates and Associated Physician Practices is amultiple site organization consisting of ambulatory clinics and hospital sitesin [place], [place] and [place]. This disclosure is being madepursuant to the Care Everywhere program and may not contain all information available regarding this patient. Last updated 18.[facility] [employer] Allergies Active Allergy Reactions Criticality Noted Date Comments Contrast-Iodinated Agents For Ct/Other Urticaria,Rash Medi um 01/31/2024 Iodine Urticaria Medium 03/20/2024 Medications * Be aware that medications may not be up to date on this document. Alwaysverify current medications with the patient. aspirin EC (Ecotrin) 81 MG tablet Take 1 (one) tablet by mouth once daily Active albuterol HFA (Proventil; Ventolin; Proair) 108 (90 Base) MCG/ACT inhaler 4 Active Wixela Inhub 250-50 MCG/ACT inhaler 4 Active Jardiance 10 MG tablet 4 Active cetirizine (ZyrTEC Allergy) 10 MG gel capsule Take 1 (one) capsule by mouth every morning Active atorvastatin (Lipitor) 40 MG tablet 3 Active metoprolol succinate XL 24hr (Toprol XL) 50 MG tablet 3 Active amLODIPine (Norvasc) 5 MG tablet Take 1 (one) tablet by mouth once daily Active Entresto 24-26 MG tablet 3 Active psyllium (Metamucil) CAPS capsule Take 1.04 g by mouth every morning Active cranberry (RA Cranberry) 500 MG capsule Take 1 (one) capsule by mouth every morning Active MILK THISTLE EXTRACT PO Take 2 capsules by mouth every morning Active Saw Tatum 500 MG Take 1 (one) capsule by mouth every morning Active alendronate (Fosamax) 35 MG tablet 4 Active influenza trivalent HIGH-DOSE (Fluzone High-Dose) 0.5 ML injection Active fluticasone propionate (Flonase) 50 MCG/ACT nasal spray 4 Active methylPREDNISolo ne (Medrol Dosepak) 4 MG tablet PO INSTRUCTED 1 Each 4 Active Additional Information Patient not taking.Reported on 09/05/2024 tiZANidine (Zanaflex) 4 MG tablet TAKE 1 TABLET BY MOUTH EVERY NIGHT NEEDED FOR MUSCLE SPASMS 30 tablet 4 Active gabapentin (Neurontin) 300 MG capsuleIndicatio ns:Cervical spondylosis Take 1 (one) capsule by mouth 2 times daily 60 capsule 4 Active Encounters Date Type Department Care Team Description 01/29/2025 9:53 AM CDT - 01/29/2025 11:59 PM CDT Hospital Encounter [facility] [address] [place] [address], [address] [address] Qasim Ybarra MD Discharge Disposition: Home or Self Care 01/21/2025 7:30 AM CDT - 01/21/2025 11:59 PM CDT Hospital Encounter [facility] Health Pain Care [address] [place] [phone] Papi Rand MD Discharge Disposition: Home or Self Care 01/07/2025 9:45 AM CDT Office Visit [facility] [address] [place] [phone] Qasim bYarra MD Cervical radiculitis (Primary Dx); Foraminal stenosis of cervical region 01/07/2025 Travel from Last 3 Months Social History Tobacco Use Types Packs/Day Years Used Date Smoking Tobacco: Never Smokeless Tobacco: Never Tobacco Cessation:Counseling Given: Not Answered PHQ-2 Answer Date Recorded Patient Health Questionnaire-2 Score 2 05/03/2024 Sex and Gender Information Value Date Recorded Sex Assigned at Not on file Legal Sex Male 1:30 PM CDT Gender Identity Not on file Sexual Orientation Not on file Last Filed Vital Signs Vital Sign Reading Time Taken Comments Blood Pressure 92/64 01/21/2025 7:45 AM CDT Pulse 65 01/21/2025 8:23 AM CDT Temperature 36.6 C (97.8 F) 01/21/2025 7:45 AM CDT Respiratory Rate 16 01/21/2025 8:23 AM CDT Oxygen Saturation 97% 01/21/2025 8:23 AM CDT Inhaled Oxygen Concentration - - Weight 83.9 kg (185 lb) 08/09/2024 9:26 AM LICENSE DISTRIBUTOR Height 177.8 cm (5' 10) 07/31/2024 1:08 PM LICENSE DISTRIBUTOR Body Mass Index 26.54 07/31/2024 1:08 PM LICENSE DISTRIBUTOR Plan of Treatment Upcoming Encounters Date Type Department Care Team (Late st Contact Info) Description 04/04/2025 1:45 PM CDT Office Visit [facility] Health Pain Care [address] [place] [phone] Qasim Ybarra MD [address] [place] [phone] Health Maintenance Due Date Last Done Comments MEDICARE AWV 12 MONTHS 1950 HEPATITIS C SCREENING 08/13/1966 DTAP/TDAP/TD VACCINES (1 - Tdap) 1967 PNEUMOCOCCAL VACCINE 50+ (1 of 1 - PCV) 1998 ZOSTER VACCINE (1 of 2) 1998 Respiratory Syncytial Virus (RSV) Vaccine Pt: or over 60 yrs (1 - 1-dose 75+ series) 2023 COVID-19 VACCINE (1 - season) 2024 DEPRESSION SCREENING 08/22/2024 03/22/2024 INFLUENZA VACCINE (#1) 2025 9, 05/23/2018, 05/22/2018, Additional history exists HEPATITIS B VACCINE Aged Out No longe r eligible based on patient's age to complete this topic HIB VACCINE Aged Out No longer eligi ble based on patient's age to complete this topic HPV VACCINE Aged Out No longer eligi ble based on patient's age to complete this topic MENINGOCOCCAL (Group B) VACCINE SHARED DECISION-MAKING Aged Out No longer eligible based on patient's age to complete this topic MENINGOCOCCAL GROUPS A/C/Y/W VACCINE Aged Out No longer eligible based on patient's age to complete this topic Procedures Procedure Name Priority Date/Time Associated Diagnosis Comments EMG Routine 01/29/2025 2:24 PM CDT Cervical radiculitis PAIN MANAGEMENT PROCEDURE TIME Routine 01/21/2025 8:27 AM CDT Radiculopathy, cervical from Last 3 Months Results * EMG (01/29/2025 2:24 PM CDT) Narrative Arden Cai MD - 01/29/2025 2:24 PM CDT Arden Cai MD 01/29/2025 2:34 PM [facility] [address] [place] [address], [address] [phone] Patient: Satnam Tovar V #: Physician: Arden Cai MD Sex: Male ID#: [id number] Ref Phys: Qasim Ybarra MD : 1950 Date: 01/29/2025 Fabrication Engineer: Aleah Valdes Patient Complaints: The patient is a 74 year old male with complaints of neck pain in bilateral upper extremities. The symptoms have been present for 1+ years. The patient has a history of cancer. Query cervical radiculopathy. Patient is not currently taking any anticoagulants. EMG & NCV Findings: The left ulnar motor and the right ulnar motor nerve conduction studies showed slow conduction velocity (A Elbow-B Elbow, L39, R40 m/s). The left median/radial (dig I) Anti Sensory nerve conduction study showed abnormal peak latency difference (Median-Radial, 0.7 ms). The right median/radial (dig I) Anti Sensory nerve conduction study showed prolonged peak latency (Median, 3.0 ms) and abnormal peak latency difference (Median-Radial, 0.7 ms). The right Median Digit II Sensory nerve conduction study showed prolonged peak latency (3.6 ms). All remaining nerve conduction studies (as indicated in the following tables) were normal. All left vs. right side differences were within normal limits. All F Wave latencies were within normal limits. Left vs. Right comparison data for the median F wave indicates abnormal L-R latency difference (3.77 ms). All remaining F Wave left vs. right side latency differences were within normal limits. Needle EMG evaluation of the right abductor pollicis brevis muscle showed mildly reduced recruitment. The right first dorsal interosseous, the right triceps, and the right supraspinatus muscles showed long motor unit duration and mildly reduced recruitment. EMG of all remaining muscles (as indicated in the following table) was normal. 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 Needle EMG study did not show active denervation. Mild neurogenic changes noted in right C6-C7-8 innervated muscles. Please correlate clinically. Arden Cai MD Diplomate, [place] [employer] and [employer] Board Certified in Clinical Neurophysiology and Neurology Nerve Conduction Studies Motor Summary Table Stim Site NR Onset (ms) Norm Onset (ms) O-P Amp (mV) Norm O-P Amp Neg Area (mVms) Site1 Site2 Delta-0 (ms) Dist (cm) Gaurav (m/s) Norm Gaurav (m/s) Left Median Motor (Abd Poll Brev) 35.8 C Wrist 3.4 <4.5 7.5 >3 25.82 Elbow Wrist 4.2 23.5 56 >48 Elbow 7.6 6.8 23.32 Right Median Motor (Abd Poll Brev) 35.8 C Wrist 3.5 <4.5 9.0 >3 28.25 Elbow Wrist 4.5 23.0 51 >48 Elbow 8.0 8.7 27.23 Left Ulnar Motor (Abd Dig Minimi) 35.8 C Wrist 2.9 <3.6 8.5 >5 26.72 B Elbow Wrist 4.7 26.0 55 >48 B Elbow 7.6 7.8 26.54 A Elbow B Elbow 2.8 11.0 39 >48 A Elbow 10.4 7.0 25.44 Right Ulnar Motor (Abd Dig Minimi) 35.8 C Wrist 2.4 <3.6 10.0 >5 27.34 B Elbow Wrist 4.9 25.0 51 >48 B Elbow 7.3 9.1 26.10 A Elbow B Elbow 2.9 11.5 40 >48 A Elbow 10.2 8.7 26.03 Anti Sensory Summary Table Stim Site NR Onset (ms) Peak (ms) Norm Onset (ms) O-P Amp ( V) Norm O-P Amp Site1 Site2 Delta-P (ms) Dist (cm) Gaurav (m/s) Norm Gaurav (m/s) Left Median/Radial Dig I Anti Sensory (Digit 1) 35.8 C Median 2.2 2.8 31.7 10 Median Radial 0.7 0.0 <0.5 Radial 1.4 2.1 9.0 5 Right Median/Radial Dig I Anti Sensory (Digit 1) 35.8 C Median 2.4 3.0 16.9 10 Median Radial 0.7 0.0 <0.5 Radial 1.6 2.3 8.6 5 Left Median/Ulnar Dig IV Anti Sensory (Digit 4) 35.8 C Median Wr 2.5 3.3 15.0 10 Median Wr Ulnar Wr 0.1 0.0 <0.5 Ulnar Wr 2.5 3.2 10.3 5 Right Median/Ulnar Dig IV Anti Sensory (Digit 4) 35.8 C Median Wr 2.9 3.6 11.6 10 Median Wr Ulnar Wr 0.4 0.0 <0.5 Ulnar Wr 2.7 3.2 11.0 5 Left Radial Anti Sensory (Snuff Box) 35.8 C Wrist 1.7 2.1 22.2 >15 Wrist Snuff Box 2.1 10.0 48 Right Radial Anti Sensory (Snuff Box) 35.8 C Wrist 1.3 1.8 23.3 >15 Wrist Snuff Box 1.8 10.0 56 Sensory Summary Table Stim Site NR Onset (ms) Peak (ms) P-T Amp ( V) Norm P-T Amp Site1 Site2 Delta-0 (ms) Dist (cm) Gaurav (m/s) Norm Gaurav (m/s) Left Median Digit II Sensory (2nd Digit) 35.8 C Wrist 2.8 3.4 39.0 >20 Wrist 2nd Digit 2.8 14.0 50 >48 Right Median Digit II Sensory (2nd Digit) 35.8 C Wrist 2.9 3.6 35.6 >20 Wrist 2nd Digit 2.9 14.0 48 >48 Left Ulnar Digit V Sensory (5th Digit) 35.8 C Wrist 2.3 3.0 39.2 >17.0 Wrist 5th Digit 2.3 14.0 61 >50 Right Ulnar Digit V Sensory (5th Digit) 35.8 C Wrist 2.4 3.1 30.2 >17.0 Wrist 5th Digit 2.4 14.0 58 >50 Motor inching Summary Table Stim Site NR Onset (ms) Norm Onset (ms) O-P Amp (mV) Norm O-P Amp Site1 Site2 Delta-0 (ms) Dist (cm) Gaurav (m/s) Norm Gaurav (m/s) Left Ulnar Inching Motor inching (Abd Dig Minimi) 35.8 C -4cm 7.1 6.1 -4cm -3cm 0.2 1.0 -3cm 7.3 7.3 -3cm -2cm 0.3 1.0 33 -2cm 7.6 7.2 -2cm -1cm 0.1 1.0 100 -1cm 7.7 6.9 -1cm 0 0.3 1.0 33 0 8.0 7.4 0 +1cm 0.3 1.0 33 +1cm 8.3 7.2 +1cm +2cm 0.5 1.0 20 +2cm 8.8 6.8 +2cm +3cm 0.2 1.0 50 +3cm 9.0 7.1 +3cm +4cm 0.3 1.0 33 +4cm 9.3 7.2 Right Ulnar Inching Motor inching (Abd Dig Minimi) 35.8 C -4cm 6.8 8.9 -4cm -3cm 0.1 1.0 -3cm 6.9 9.2 -3cm -2cm 0.1 1.0 100 -2cm 7.0 9.2 -2cm -1cm 0.3 1.0 33 -1cm 7.3 9.2 -1cm 0 0.3 1.0 33 0 7.6 9.1 0 +1cm 0.4 1.0 25 +1cm 8.0 9.1 +1cm +2cm 0.3 1.0 33 +2cm 8.3 8.7 +2cm +3cm 0.2 1.0 50 +3cm 8.5 8.4 +3cm +4cm 0.2 1.0 50 +4cm 8.7 8.3 F Wave Studies NR F-Lat (ms) Lat Norm (ms) L-R F-Lat (ms) L-R Lat Norm Left Median (Mrkrs) (Abd Poll Brev) 35.8 C 26.81 <33 3.77 <2.2 Right Median (Mrkrs) (Abd Poll Brev) 35.8 C 23.04 <33 3.77 <2.2 Left Ulnar (Mrkrs) (Abd Dig Min) 35.8 C 32.20 <36 0.00 <2.5 Right Ulnar (Mrkrs) (Abd Dig Min) 35.8 C 32.20 <36 0.00 <2.5 EMG Side Muscle Nerve Root Insrt Fibs Psw Fasc Amp Dur Poly Recrt Comm Right Abd Poll Brev Median C8-T1 Nml Nml Nml 0 Nml Nml 0 Reduced (mild) Right 1stDorInt Ulnar C8-T1 Nml Nml Nml 0 Nml Incr 0 Reduced (mild) Right ExtDigCom Radial (Post Int) C7-8 Nml Nml Nml 0 Nml Nml 0 Nml Right Triceps Radial C6-7-8 Nml Nml Nml 0 Nml Incr 0 Reduced (mild) Right Supraspinatus SupraScap C5-6 Nml Nml Nml 0 Nml Incr 0 Reduced (mild) Right Deltoid Axillary C5-6 Nml Nml Nml 0 Nml Nml 0 Nml Right Middle Cervical Paraspinals Rami C4-C6 Nml Nml Nml 0 Nml Nml 0 Nml Right Lower Cervical Paraspinals Rami C6-T1 Nml Nml Nml 0 Nml Nml 0 Nml Waveforms: us Qasim Ybarra MD NEUROLOGY ORDERABLES Final Resul t * Pain Management Procedure Time (01/21/2025 8:27 AM CDT) Anatomical Region Laterality Modality Radio Fluoroscop y Narrative 01/21/2025 10:08 AM Papi Anderson MD 01/21/2025 10:08 AM PROCEDURE NOTE: left paramedian Interlaminar Epidural Steroid Injection at C7/T1 DOS: 01/21/2025 Primary pain complaint: Cervical Radicular pain Pre-procedure diagnosis: Spinal stenosis Post-procedure diagnosis: Same Attending: Dr. Papi Boston MD., Ph.D. The procedure, its benefits, and its risks were explained and written informed consent was obtained from the patient. Immediately prior to starting the procedure, a time-out safety check was conducted. The patient's identification, procedure name, procedure site, and procedure laterality were confirmed with the patient. The patient was positioned prone on a fluoroscopy table with a pillow under the chest to help with neck flexion. A pulse ox monitor was attached, and the patient was monitored throughout the procedure. Surgical cap, mask, and sterile gloves were worn. The C7 vertebral level was identified with use of fluoroscopy in AP view. The skin was prepped using ChloraPrep and draped in a sterile fashion. The skin and subcutaneous tissue were anesthetized using 3 mL of 1% plain lidocaine with a 25 gauge 1.5 inch needle. A 3.5 inch 20 gauge Tuohy needle was slowly advanced using the AP fluoroscopic view towards the C7/T1 epidural space keeping it coaxial to the fluoroscopy beam. The latter part of the needle advancement was guided with fluoroscopy in the DIOGO view. The epidural space was identified using [id number] technique with normal saline. After negative aspiration for blood or CSF, 2 mL of contrast was injected to confirm the needle placement. The lateral fluoroscopy view showed predominantly dorsal epidural space contrast spread. After negative aspiration for blood or CSF, 3 mL of injectate (1 mL of 40 mg/mL triamcinolone and 2 mL of normal saline) was injected in increments with intermittent negative aspiration for blood. The needle stylet was reinserted and the needle was removed. The patient tolerated the procedure well and was observed at the Pain Center for 20 minutes. Vital signs were stable. The patient was discharged with an escort and given written discharge instructions. Preop VAS: 7/10 Postop VAS: 1/10 PLAN: The patient was advised to contact the Pain Center for any of the followin. Swelling, redness, bleeding, or discharge from injection site 2. Fever greater than 100 degrees F 3. New or worsening back or neck pain 4. New numbness or weakness in arms or legs 5. New urinary difficulty or incontinence, New bowel incontinence 6. Headache after the procedure 7. Any questions regarding the procedure If unable to contact the Pain Center in the event of apparent serious complication(s), the patient was instructed to visit the nearest emergency department for further evaluation. Procedural Imaging Documentation: Berman ultrasound images from this procedure were requested to be saved in the PACS system. At the time of this dictation, I have confirmed that the images are present in the PACS system as part of the patient's medical record. I, Papi Boston, performed the whole procedure. us Papi Boston MD DIAGNOSTIC IMAGING ORDERA BLES Final Result from Last 3 Months Insurance MEDICARE Care Teams Suggestion Clerk Relationship Specialty Start Date End Date Beck Quiroz MD [address] [address] Cardiovascular Disease 08/10/24 [place] [address] [address] Physical Medicine and Rehabilitation 09/19/24
--- OUTSIDE RECORDS SUMMARY | 2025-04-03 13:56 | XMS_ITS | Patient Health Record ---
Author Organization [facility] Address [address] [place], [place] [id number] Care Team Providers Care Mop Man Name Role Phone KELSY ASHRAF Unavailable [phone] Reno Miramontes Unavailable Unavailable Reason For Referral No Information Medications Medication SIG (Take, Route, Frequency, Duration) Notes Start Date End Date Status Medrol Dosepak ORAL Medrol DosepakOr iginal MedicationMedrol Dosepak *Reorder from Augmenix for eRx and Interaction Alerts* 07/09/2014 Active Nabumetone 500 MG Oral Tablet ORAL nabumetone 500 MG Oral TabletOriginal Medicationnabumetone 500 MG Oral Tablet *Reorder from ChartITrightspan for eRx and Interaction Alerts* 06/21/2014 Active Plan Of Treatment No Information Insurance Providers Payer Name Payer Address Payer Phone Subscriber Number Group Number Insured Name Patient Relationship to Insured Coverage Start Date Coverage End Date Medicare Part B [place] [address] [place] [phone] [id number] AWA WERNER Self - patient is the insured [facility] [address] [place], [place] [id number] AWA WERNER Self - patient is the insured [facility] [address] [place], [place] [id number] AWA WERNER Self - patient is the insured
--- OUTSIDE RECORDS SUMMARY | 2025-04-03 13:56 | XMS_ITS | Clinical Summary ---
Author Organization [facility] Address [address] [place] [address] Care Team Providers Care Trust Administrator Name Role Phone Shyam Lorenzo MD Primary Care Provider Jason Orellana MD PhD Unavailable + Ellie Hatfield RN Unavailable Unavailable Malka Candelario RN Unavailable Unavaila Nayely Huang Unavailable Unavailable Allergies Active Allergy Reactions Criticality Noted Date Comments Iodinated Contrast Media Hives,Rash Medium 01/31/2024 Iodine Hives Medium Medications atorvastatin (LIPITOR) 40 mg tablet Take 1 tablet (40 mg total) by mouth every morning 3 Active cetirizine 10 mg capsule Take 1 tablet by mouth every morning Active fluticasone propion-salmete roL (Advair Diskus) 250-50 mcg/dose diskus inhaler Inhale 1 puff 2 (two) times a day Active fluticasone propionate (FLONASE) 50 mcg/actuation nasal spray Administer 1 spray into each nostril daily Active alendronate (FOSAMAX) 35 mg tablet Take 1 tablet (35 mg total) by mouth every 7 days Active metoprolol XL (TOPROL-XL) 50 mg extended release tablet Take 1 tablet (50 mg total) by mouth every morning 90 tablet 3 3 Active Entresto 24-26 mg tablet Take 1 tablet by mouth 2 (two) times a day 3 Active albuterol HFA (PROVENTIL HFA,VENTOLIN HFA,PROAIR HFA) 90 mcg/actuation inhaler Inhale 2 puffs every 4 (four) hours as needed 4 Active aspirin 81 mg enteric coated tablet Take 1 tablet (81 mg total) by mouth daily Active spironolactone (ALDACTONE) 25 mg tablet Take 1 tablet (25 mg total) by mouth daily 90 tablet 3 4 Active psyllium 0.52 gram capsule Take 2 capsules (1.04 g total) by mouth every morning Active saw palmetto 500 mg capsule Take 1 capsule by mouth every morning Active cranberry 500 mg capsule Take 1 capsule by mouth every morning Active milk thistle 500 mg capsule Take 2 capsules by mouth every morning Active tiZANidine (ZANAFLEX) 4 mg tablet TAKE 1 TABLET BY MOUTH EVERY NIGHT NEEDED FOR MUSCLE SPASMS 4 Active empagliflozin (JARDIANCE) 10 mg tabletIndicatio ns:Heart Failure Take 1 tablet (10 mg total) by mouth daily 90 tablet 3 4 Active gabapentin (NEURONTIN) 300 mg capsule Take 1 capsule (300 mg total) by mouth 2 (two) times a day 4 Active Active Problems Problem Noted Date Diagnosed Date Coronary artery disease invo lving [place] coronary artery of [place] heart without angina pectoris 03/09/2024 NICM (nonischemic cardiomyopathy) 02/06/2024 Biventricular automatic impl antable cardioverter defibrillator in situ 01/09/2024 Overview (09/07/2024): Root Unify Assura BIV ICD. Dx; NICM, CHF, LBBB. DOI 02/06/2024-Kahanda. Aryan frazier. Device is Not MRI conditional-confirmed w/tech services 03/28/24. Jr 09/07/2024-patient transferred to [facility]. Heart failure with reduced ejection fraction Nonischemic cardiomyopathy 02/18/2023 LBBB (left bundle branch block) 02/18/2023 Encounters Date Type Department Care Team Description 03/01/2025 2:00 PM CDT Office Visit [facility] [address] [place] [address] Medical Office Building [address] [address] Beck Quiroz MD PhD NICM (nonischemic cardiomyopathy) (HCC) (Primary Dx); Heart failure with reduced ejection fraction (HCC) 03/01/2025 1:30 PM CDT Ancillary Procedure [facility] [address] [place] [address] Office Building [address] [place] [address] NICM (nonischemic cardiomyopathy) (HCC) (Primary Dx); LBBB (left bundle branch block); Encounter for implantable defibrillator reprogramming or check 02/27/2025 12:00 PM CDT Office Visit [facility] 8th [place] [address] [place] [id number] Jason Orellana MD PhD Heart failure with reduced ejection fraction (HCC) (Primary Dx); LBBB (left bundle branch block) 01/07/2025 Orders Only [facility] [address] [place] [address] Medical Office Building [address] [place] [id number] Beck Quiroz MD PhD from Last 3 Months Immunizations Immunization Administration Dates Next Due Influenza, Trivalent, Adjuva nted, Intramuscular 05/23/2018,05/22/2018 Influenza, Trivalent, High D ose, Split, Preservative Free, Intramuscular 08/02/2019,06/21/2017,06/27/2016,06/10,06/01/2014 Influenza, Trivalent, IM (MDV) 05/17/2013,2011 ZOSTER LIVE 06/17/2012 ZOSTER Recombinant 09/09/2018,07/07/2018 Surgical History Surgery Date Site/Laterality Comments APPENDECTOMY Appendectomy TONSILLECTOMY Tonsillectomy OTHER SURGICAL HISTORY Cancer, basal Cell: Exc of Rt forearm lesion 05/02 OTHER SURGICAL HISTORY L inguinal hernia repair 04/10/13 OTHER SURGICAL HISTORY 04/10/13- Inguinal hernia repair Medical History Medical History Date Comments Hypertension Hypertension Hyperlipidemia Hyperlipidemia Superficial basal cell carcinoma Cancer, basal Cell Sleep apnea Asthma Nonischemic cardiomyopathy (HCC) LBBB (left bundle branch block) Heart failure with reduced ejection fraction OAB (overactive bladder) Arthritis lower back Osteopenia Spinal stenosis of cervical region Prostate cancer (HCC) Family History Medical History Relation Name Comments Hypertension Brother Diabetes Father Diabetes mellit us; Heart attack Father Heart disease Father Heart disease; Hypertension Father Hypertension; Hypertension Mother Diabetes Other Family history of diabetes mellitus - (Added by TW Conv) Heart failure Son Sudden Cardiac Son Relation Name Status Comments Brother Father Mother Other Son Alive Social History Tobacco Use Types Packs/Day Years Used Date Smoking Tobacco: Never Smokeless Tobacco: Never Tobacco Cessation:Counseling Given: Not Answered Alcohol Use Standard Drinks/Week Comments Yes 0 (1 standard drink = 0.6 oz pur e alcohol) AUDIT-C Answer Date Recorded Q1: How often do you have a drink containing alc ohol? 2-3 times a week 02/06/2024 Q2: How many drinks containi ng alcohol do you have on a typical day when you are drinking? 3 or 4 02/06/2024 Q3: How often do you have si x or more drinks on one occasion? Never 02/06/2024 Personal Safety Answer Date Recorded Have you ever been in or are you currently in a harmful physical or emotional relationship or is someone making you feel afraid or unsafe? 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 Gender Identity Not on file Sexual Orientation Not on file Obstetrics History Last Filed Vital Signs Vital Sign Reading Time Taken Comments Blood Pressure 104/66 03/01/2025 1:13 PM CDT Pulse 75 03/01/2025 1:13 PM CDT Temperature 36.4 C (97.5 F) 02/07/2024 7:54 AM CDT Respiratory Rate 14 05/01/2024 8:14 AM CDT Oxygen Saturation 97% 03/01/2025 1:13 PM CDT Inhaled Oxygen Concentration - - Weight 86.1 kg (189 lb 12.8 oz) 03/01/2025 1:13 PM CDT Height 177.8 cm (5' 10) 03/01/2025 1:13 PM CDT Body Mass Index 27.23 03/01/2025 1:13 PM CDT Plan of Treatment Health Maintenance Due Date Last Done Comments Depression Screening 1950 Hepatitis C Screening 1950 DTaP/Tdap/Td Vaccine (1 - Tdap) 1959 Hepatitis B Screening 1966 Pneumococcal vaccine 65+ (1 of 2 - PCV) 1967 Well Visit 65+ 2013 Fall Risk Assessment 02/05/2025 02/06/2024 Influenza Vaccine (#1) 2025 9, 05/23/2018, 05/22/2018, Additional history exists Zoster Vaccine Completed 09/09/2018, 06/22, 06/17/2012 Medical Devices Implanted Type Area Fieldwork Coordinator Device Identifier Shelf Expiration Date Model / Serial / Lot [employer] Laine Aparicioura Rf Telemetry [id number] Is-1 Connector 40j [id number] - [id number] - [id number] Implanted:Qty: 1 on 02/06/2024 by Mando Kamara MD at [facility] ICD [employer] 12/19/2026 [id number] / [id number] / [employer] Tendril Sts 6fr 52cm Is-1 Connector Active Fixation Bipolar Soft 2088tc/52 - [id number] - [id number] Implanted:Qty: 1 on 02/06/2024 by Mando Kamara MD at [facility] Lead [employer] 11/22/2026 2088TC/52 / [id number] / [employer] Tendril Sts 6fr 58cm Is-1 Connector Active Fixation Bipolar Soft 8tc/58 - [id number] - [id number] Implanted:Qty: 1 on 02/06/2024 by Mando Kamara MD at [facility] Lead [employer] 12/19/2026 2088TC/58 / [id number] / [employer] Durata 6.8fr 65cm True Bipolar Active Fixation Extendable 1 Coil 7122q/65 - [id number] - [id number] Implanted:Qty: 1 on 02/06/2024 by Mando Kamara MD at [facility] [employer] 06/21/2026 7122Q/65 / [id number] / Explanted Type Area Fieldwork Coordinator Device Identifier Shelf Expiration Date Model / Serial / Lot [employer] Quartet 4.7fr 86cm Quadripolar Is-4 Llll Connector 8 Curve Low 1456q/86 - [id number] - [id number] Implanted:Qty: 1 on 02/06/2024 by Mando Kamara MD at [facility] Explanted:Qty: 1 on 02/06/[address] [employer] 09/21/2026 1456Q/86 / [id number] / Procedures Procedure Name Priority Date/Time Associated Diagnosis Comments DEVICE CHECK - IN OFFICE Routine 03/01/2025 1:00 PM CDT LBBB (left bundle branch block) NICM (nonischemic cardiomyopathy) (HCC) DEVICE CHECK - REMOTE Routine 01/07/2025 11:12 PM CDT from Last 3 Months Results * DEVICE CHECK - IN OFFICE (03/01/2025 1:00 PM CDT) Anatomical Region Laterality Modality Other 03/01/2025 2:00 AM CDT Narrative 03/19/2025 8:38 PM CDT Interpretation Summary: Battery and Leads (BL) Normal parameters noted on battery and lead(s) --- Estimated battery longevity 5.9 years. Charge time 8.1 seconds Presenting Rhythm (IL) Atrial Sensing-BiVentricular Pacing (-BiVP) --- 60 bpm. Underlying As/VS 75 bpm. NSR Transmission Information (TI) Device Summary Report Procedure Note Beck Quiroz MD PhD - 03/19/2025 Interpretation Summary: Battery and Leads (BL) Normal parameters noted on battery and lead(s) --- Estimated batterylongevity 5.9 years. Charge time 8.1 seconds Presenting Rhythm (IL) Atrial Sensing-BiVentricular Pacing (-BiVP) --- 60 bpm. Underlying As/VS75 bpm. NSR Transmission Information (TI) Device Summary Report us [facility] [place] [facility] Carlita Min MD CV CARDIAC SERVICES PRO CEDURES Final Result * DEVICE CHECK - REMOTE (01/07/2025 11:12 PM CDT) Anatomical Region Laterality Modality Other 01/07/2025 11:1 2 PM CDT Narrative 03/19/2025 8:34 PM CDT Interpretation Summary: Battery and Leads (BL) Normal parameters noted on battery and lead(s) --- 6 years remaining (this is an estimate based on prior usage) Presenting Rhythm (IL) Atrial Sensing-BiVentricular Pacing (-BiVP) --- rate 70 Arrhythmic events (AE) Atrial High-Rate Episode(s) identified --- One non-sustained AT episode Transmission Information (TI) Device Summary Report Procedure Note Beck Quiroz MD PhD - 03/19/2025 Interpretation Summary: Battery and Leads (BL) Normal parameters noted on battery and lead(s) --- 6 years remaining(this is an estimate based on prior usage) Presenting Rhythm (IL) Atrial Sensing-BiVentricular Pacing (-BiVP) --- rate 70 Arrhythmic events (AE) Atrial High-Rate Episode(s) identified --- One non-sustained AT episode Transmission Information (TI) Device Summary Report Beck Quiroz MD PhD CV CARDIAC SERVICES PROCEDURES Final Result from Last 3 Months Insurance [employer] MEDICARE MEDICARE FOR LIFE MEDICARE FOR LIFE Advance Directives For more information, please contact: [phone] * Full Code (Latest Code Status on File) Date Activated Date Inactivated Comments 02/06/2024 1:48 PM 02/07/2024 1:17 PM Care Teams Trust Administrator Relationship Specialty Start Date End Date Shyam Lorenzo MD [address] [place] [address] PCP - General Internal Medicine 03/03/23 Jason Orellana MD PhD [address] [place] [address] Referring Physician Cardiology 05/16/24 Ellie Hatfield, supervising producer Failure Coordinator Transplant 05/16/24 Malka Candelario, supervising producer Failure Coordinator 05/16/24 Nayely Walker 05/16/24
--- OUTSIDE RECORDS SUMMARY | 2025-04-03 13:56 | XMS_ITS | Encounter Summary ---
Author Organization [facility] Address [address] [facility] [address] [address] [facility] [place] [address] Care Team Providers Care Core Paster Name Role Phone Beck Quiroz MD Unavailable [phone] Mihir Reyes MD Unavailable [phone] Encounter Details Date Type Department Care Team (Late Contact Info) Description 05/25/2023 Lab Requisition [facility] - DermPath Lab [address] [facility], [place] [address] Ludmila Dasilva DO [address] [facility] [address] [place] [address] Social History Tobacco Use Types Packs/Day Years Used Date Smoking Tobacco: Never Assessed Sex and Gender Information Value Date Recorded Sex Assigned at Not on file Legal Sex Male 1:30 PM CDT Gender Identity Not on file Sexual Orientation Not on file documented as of this encounter Plan of Treatment Upcoming Encounters Date Type Department Care Team (Late Contact Info) Description 04/04/2025 1:45 PM CDT Office Visit [facility] Health Pain Care [address] [place] [address] Qasim Ybarra MD [address] [place] [address] documented as of this encounter Procedures Procedure Name Priority Date/Time Associated Diagnosis Comments DERMATOPATHOLOGY Routine 05/25/2023 10:1 2 AM CDT documented in this encounter Results * DERMATOPATHOLOGY (05/25/2023 10:12 AM CDT) Case Report Dermatopathology Report Case: [id number] Authorizing Provider: Ludmila Dasilva DO Collected: 05/25/2023 10:12 AM Ordering Location: [facility] Received: 05/26/2023 12:32 PM Pathologist: Naima Condon MD Specimen: Skin, right ant LE 5:40 PM CDT DERMATOPATHOLOGY LABORATORY Final Diagnosis Specimen A. 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 The specimen consists of a shave biopsy measuring 4x5x1 mm. Jar 0. 5:40 PM CDT DERMATOPATHOLOGY LABORATORY Microscopic Description Specimen A. SKIN, right ant LE: The epidermis shows parakeratosis, full thickness disorderly maturation of keratinocytes, mitoses at different levels, and dyskeratotic cells. 5:40 PM CDT DERMATOPATHOLOGY LABORATORY Disclaimer An external and internal positive and negative controls are appropriate for the histochemical, immunohistochemical and immunofluorescence stain(s) in this case (if any), except where stated explicitly. The performance characteristics of the stain(s) cited in this report were developed and its performance characteristic determined by the Dermatopathology Laboratory at [facility], directed by Dr. Nicol Godinez. These tests need not be, and therefore are not, approved by the [place] Food and Drug Administration. The tests are used for clinical purposes. Billing Codes Specimen Charges Stain Charges 50942 1 5:40 PM CDT DERMATOPATHOLOGY LABORATORY Embedded Images 5:40 PM CDT DERMATOPATHOLOGY LABORATORY Pathology/Cytolo gy TISSUE SPECIMEN FROM SKIN / Unknown 05/25/2023 10:12 AM CDT 05/26/2023 12:32 PM CDT us Ludmilachico Dasilva DO LAB - PATHOLOGY/CYTOLOGY ORDERABLES Final Result DERMATOPATHOLOGY LABORATORY [facility] - Department of Dermatology [facility] Specialized Medicine [address] [facility]rd [place] [address], [facility] [phone] documented in this encounter Visit Diagnoses Not on filedocumented in this encounter Care Teams Core Paster Relationship Specialty Start Date End Date Beck Quiroz MD [address] [address] Cardiovascular Disease 08/10/24 [place] [address] [address] Physical Medicine and Rehabilitation 09/19/24 documented as of this encounter
--- OUTSIDE RECORDS SUMMARY | 2025-04-03 13:56 | XMS_ITS | Clinical Summary ---
Author Organization [facility] Address [address] [place] [address] Care Team Providers Care Register Of Deeds Name Role Phone Shyam Lorenzo MD Primary Care Provider [phone] Social History Tobacco Use Types Packs/Day Years Used Date Smoking Tobacco: Never Assessed Sex and Gender Information Value Date Recorded Sex Assigned at Not on file Legal Sex Male 8:15 PM CDT Gender Identity Not on file Sexual Orientation Not on file Plan of Treatment Health Maintenance Due Date Last Done Comments Hepatitis C 1966 DTaP, Tdap and Td Vaccines ( 1 - Tdap) 1967 Pneumococcal Vaccine: 50+ Ye ars (1 of 1 - PCV) 1998 Zoster Vaccines (2 of 3) 08/12/2012 06/17/2012 Annual Medicare Wellness Visit 2013 RSV Immunization or 60+ Years (1 - 1-dose 75+ series) 2023 COVID-19 Vaccine ( - 2023-2 5 season) 2024 Meningococcal B Vaccine Aged Out No l onger eligible based on patient's age to complete this topic Meningococcal Vaccine Aged Out No alberta emma eligible based on patient's age to complete this topic RSV Immunizations Under 20 Months Aged Out No longer eligible based on patient's age to complete this topic Insurance MEDICARE [facility] Care Teams Register Of Deeds Relationship Specialty Start Date End Date Shyam Lorenzo MD [address] [address] PCP - General INTERNAL MEDICINE 03/23/22
--- OUTSIDE RECORDS SUMMARY | 2025-04-03 13:56 | XMS_ITS | Encounter Summary ---
Author Organization [facility] Address [address] [place] [address] Care Team Providers Care Batch Mixer Name Role Phone Beck Quiroz MD Unavailable [phone] Mihir Reyes MD Unavailable [phone] Encounter Details Date Type Department Care Team (Late st Contact Info) Description 12/05/2024 Lab Requisition [facility] - DermPath Lab [address] [facility], [place] [address] Ludmila Dasilva DO [address] [facility] [address] [place] [address] Social History Tobacco Use Types Packs/Day Years Used Date Smoking Tobacco: Never Smokeless Tobacco: Never PHQ-2 Answer Date Recorded Patient Health Questionnaire-2 [...] Description 04/04/2025 1:45 PM CDT Office Visit [facility] Health Pain Care [address] [place] [address] Qasim Ybarra MD [address] [place] [address] documented as of this encounter Procedures Procedure Name Priority Date/Time Associated Diagnosis Comments DERMATOPATHOLOGY Routine 12/05/2024 11:0 1 AM CDT documented in this encounter Results * DERMATOPATHOLOGY (12/05/2024 11:01 AM CDT) Case Report Dermatopathology Report Case: [id number] Authorizing Provider: Ludmila Dasilva DO Collected: 12/05/2024 11:01 AM Ordering Location: [facility] - Received: 12/07/2024 06:25 AM DermPath Lab Pathologist: Malka Alexis MD Specimen: Skin, right medial LE 3:56 PM CDT DERMATOPATHOLOGY LABORATORY Final Diagnosis Specimen A. 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 The specimen consists of a shave biopsy measuring 6x5x1 mm. Jar 0. 3:56 PM CDT DERMATOPATHOLOGY LABORATORY Microscopic Description Specimen A. SKIN, right medial LE: The epidermis shows parakeratosis, full thickness disorderly maturation of keratinocytes, mitoses at different levels, and dyskeratotic cells. 3:56 PM CDT DERMATOPATHOLOGY LABORATORY Disclaimer An external and internal positive and negative controls are appropriate for the histochemical, immunohistochemical and immunofluorescence stain(s) in this case (if any), except where stated explicitly. The performance characteristics of the stain(s) cited in this report were developed and its performance characteristic determined by the Dermatopathology Laboratory at [facility], directed by Dr. Nicol Godinez. These tests need not be, and therefore are not, approved by the [place] Food and Drug Administration. The tests are used for clinical purposes. Billing Codes Specimen Charges Stain Charges 95111 1 3:56 PM CDT DERMATOPATHOLOGY LABORATORY Embedded Images 3:56 PM CDT DERMATOPATHOLOGY LABORATORY Pathology/Cytolo gy TISSUE SPECIMEN FROM SKIN / Unknown 12/05/2024 11:01 AM CDT 12/07/2024 6:25 AM CDT us Ludmila Dasilva DO LAB - PATHOLOGY/CYTOLOGY ORDERABLES Final Result DERMATOPATHOLOGY LABORATORY [facility] - Department of Dermatology [facility] Specialized Medicine [address] [place] [address], [address] [phone] documented in this encounter Visit Diagnoses Not on filedocumented in this encounter Care Teams Batch Mixer Relationship Specialty Start Date End Date Beck Quiroz MD [address] [address] Cardiovascular Disease 08/10/24 [place] [address] [address] Physical Medicine and Rehabilitation 09/19/24 documented as of this encounter
== END 2025-04-03 13:46 | disposition home or self-care (01) ==
PROVIDERS: Visit Provider Internal Medicine Pulmonary Disease
DX: J45.40 Moderate persistent asthma, uncomplicated (principal)
CPT/HCPCS: 71046